=== PATIENT | female | born 1995 | race Caucasian/White ===

== ENCOUNTER 2016-11-16 18:34 | Emergency (ER) | payer MEDICAID, OTHER ==
[~2016-11-16] VITALS: Ht 167.6 cm; Wt 43.0 kg
[~2016-11-16 18:34] MED LIST: ANAP550T PO; PREN0.01 PO; SENN1TAB11 PO
[2016-11-16 18:36] VITALS: BP 117/57; PULSE 87; RESP 13; TEMP 98.8; O2SAT 97
--- NOTE | 2016-11-16 19:31 | PD ---
HPI Chief Complaint: Related Problem Time Seen by Provider: 19:24 Travel History International Travel<30 days: No Contact w/Intl Traveler<30days: No Traveled to known affect area: No History of Present Illness HPI 21 YO F presents to the ED for evaluation of 1 week history of nausea and vomiting. She denies abdominal pain, vaginal bleeding, vaginal discharge. She endorses 2 day history of dysuria despite completing a course of Macrobid form an outside hospital. The patient states that she thinks she had a miscarriage ~ 4 weeks ago. She states that she had 2 days of light vaginal bleeding at that time that resolved spontaneously. She is unsure of the date of her last menstrual period, thinks it may have been in August. PFSH Past Medical History Diminished Hearing: No Ulcer: Yes (PUD) ?: LMP: SEPTEMBER 2016 : 3 Miscarriage: 2 Ovarian Cysts: Yes Social History Alcohol Use: No Tobacco Use: Yes (5 cigarettes per day) Substance Use: No Allergies-Medications (Allergen,Severity, Reaction): Coded Allergies: acetaminophen (Unverified Allergy, Intermediate, HIVES, 10/09/16) oxycodone (Unverified Allergy, Intermediate, HIVES, 10/09/16) diphenhydramine (Unverified Adverse Reaction, Intermediate, HYPERACTIVITY , 10/09/16) Reported Meds & Prescriptions Reported Meds & Active Scripts Active Review of Systems Except as stated in HPI: all other systems reviewed are Neg Physical Exam Narrative GENERAL: Well-nourished, well-developed petite white female in no acute distress. SKIN: Focused skin assessment warm/dry. HEAD: Normocephalic. EYES: No scleral icterus. No injection or drainage. NECK: Supple, trachea midline. No JVD or lymphadenopathy. CARDIOVASCULAR: Regular rate and rhythm without murmurs, gallops, or rubs. RESPIRATORY: Breath sounds equal bilaterally. No accessory muscle use. GASTROINTESTINAL: Abdomen soft, non-tender, nondistended. No suprapubic tenderness. Active bowel sounds. MUSCULOSKELETAL: No cyanosis, or edema. BACK: Nontender without obvious deformity. No CVA tenderness. Data Data Last Documented VS Vital Signs Date Time Temp Pulse Resp B/P (MAP) Pulse Ox O2 Delivery O2 Flow Rate FiO2 11/16/16 18:55 79 18 11/16/16 18:36 98.8 117/57 (77) 97 Orders Orders Urinalysis - C+S If Indicated (11/16/16 19:30) Beta Hcg (Quant/Titer) (11/16/16 19:30) Labs Laboratory Tests Test 11/16/16 19:50 Urine Color YELLOW Urine Turbidity HAZY Urine pH 6.0 Urine Specific [place] 1.011 Urine Protein NEG mg/dL Urine Glucose (UA) NEG mg/dL Urine Ketones NEG mg/dL Urine Occult Blood NEG Urine Nitrite NEG Urine Bilirubin NEG Urine Urobilinogen 2.0 MG/DL Urine Leukocyte Esterase SMALL Urine WBC 5 /hpf Urine Squamous Epithelial Cells 7 /hpf Urine Amorphous Sediment RARE Urine Mucus FEW /lpf Microscopic Urinalysis Comment CULT NOT INDICATED Human Chorionic Gonadotropin, Quant 1656 MIU/ML MDM Medical Decision Making Medical Screen Exam Complete: Yes Emergency Medical Condition: Yes Differential Diagnosis UTI versus intrauterine versus ectopic versus other Narrative Course 21 YO F presents to the ED for evaluation of 1 week history of nausea and vomiting. She denies abdominal pain, vaginal bleeding, vaginal discharge. She endorses 2 day history of dysuria despite completing a course of Macrobid form an outside hospital. The patient states that she thinks she had a miscarriage ~ 4 weeks ago. She states that she had 2 days of light vaginal bleeding at that time that resolved spontaneously. She is unsure of the date of her last menstrual period, thinks it may have been in August. Vitals reviewed. Abdominal exam is completely benign. Urine test positive. HCG 1656. No culture indicated of the UA. This is early stage of . Patient's encouraged to begin taking vitamins. She states that she has an appointment with her oil house attendant on 11/04. We discussed reasons to return to the ED. Patient indicated understanding of the instructions. She is stable and discharged home. Diagnosis Primary Impression: Early stage of Referrals: Real Estate Loan Officer Patient Instructions: First Trimester (ED), General Instructions Additional Instructions: Rest, hydrate. Return to normal, gentle activities as tolerated. Eat several small meals throughout the course the day to lessen nausea and vomiting. Begin taking vitamins. Follow-up with the oil house attendant as planned. Return to the ED for any urgent or emergent medical condition. Disposition: 01 DISCHARGE HOME Condition: Stable Isabel Onofre Nov 16, 2016 19:31
[2016-11-16 20:41] LABS: BLOOD, URINE NEG (NEG); COMMENT (UR) CULT NOT INDICATED; CULTURE IF INDICATED CULT NOT INDICATED; GLUCOSE,URINE NEG (NEG); KETONE, URINE NEG (NEG); MUCUS URINE FEW /lpf (OCC); NITRITE,URINE NEG (NEG); SQUAMOUS EPITHELIAL CELL URINE 7 /hpf (0-5); URINE COLOR YELLOW (YELLW/STRAW)
[2016-11-16 20:45] LABS: BETA HCG QUANT 1656 MIU/ML (0-5)
[2016-11-16] MEDS ORDERED: ONDANSETRON ODT 4 MG TAB PO ONE (21:15)
== END 2016-11-16 21:15 | disposition home or self-care (01) ==
LOC: NEPC 18:34
DX: O21.9 Vomiting of pregnancy, unspecified (principal); Z3A.01 Less than 8 weeks gestation of pregnancy
CPT/HCPCS: 81001; 84702; 99283

== ENCOUNTER 2016-11-27 23:44 | Emergency (ER) | payer MEDICAID ==
[~2016-11-27] VITALS: Ht 162.6 cm; Wt 45.0 kg
[2016-11-27 23:49] VITALS: BP 114/78; PULSE 65; RESP 16; TEMP 98.6; O2SAT 100
--- NOTE | 2016-11-28 01:11 | PD ---
HPI . Abdominal pain and Chief Complaint: Abdominal Pain Time Seen by Provider: 00:54 Travel History International Travel<30 days: No Contact w/Intl Traveler<30days: No Traveled to known affect area: No History of Present Illness HPI Patient presents stating that she is about 5 weeks and that she is having lower abdominal pain. Onset is today. No associated symptoms such as vaginal discharge or bleeding. No urinary tract symptoms. No modifying factors. Pain is rated 7/10. The patient was seen here on 11/16 were was confirmed. She had a quantitative hCG of 1656. She was having no abdominal pain or bleeding so ultrasound was not done. She was instructed to follow-up with OB. PFSH Past Medical History Bipolar Disorder: Yes Depression: Yes Diminished Hearing: No Ulcer: Yes (PUD) Tetanus Vaccination: Unknown ?: LMP: 09/25/2016 : 3 Miscarriage: 2 Ovarian Cysts: Yes Social History Alcohol Use: No Tobacco Use: Yes (5 cigarettes per day) Substance Use: No Allergies-Medications (Allergen,Severity, Reaction): Coded Allergies: acetaminophen (Unverified Allergy, Intermediate, HIVES, 10/09/16) oxycodone (Unverified Allergy, Intermediate, HIVES, 10/09/16) diphenhydramine (Unverified Adverse Reaction, Intermediate, HYPERACTIVITY , 10/09/16) Reported Meds & Prescriptions Reported Meds & Active Scripts Active Review of Systems Except as stated in HPI: all other systems reviewed are Neg General / Constitutional: No: Fever, Chills Gastrointestinal: Positive: Abdominal Pain, No: Nausea, Vomiting, Diarrhea Genitourinary: Positive: Pelvic Pain, No: Urgency, Frequency, Dysuria, Discharge, Vaginal Bleeding Physical Exam Narrative GENERAL: Patient is awake and alert and in no acute distress. SKIN: Warm and dry with no rash or lesions. HEAD: Normocephalic/atraumatic. EYES: Pupils are equal. Extraocular movements are intact. ENT: Extremely poor dentition. NECK: Full range of motion with no apparent pain. CARDIOVASCULAR: Regular rate and rhythm. RESPIRATORY: Nonlabored. ABDOMEN: Soft with suprapubic tenderness. No guarding or rebound. MUSCULOSKELETAL: Atraumatic. NEUROLOGICAL: Nonfocal. PSYCHIATRIC: Appropriate mood and affect. Data Data Last Documented VS Vital Signs Date Time Temp Pulse Resp B/P (MAP) Pulse Ox O2 Delivery O2 Flow Rate FiO2 11/27/16 23:49 98.6 65 16 114/78 (90) 100 Orders Orders Beta Hcg (Quant/Titer) (11/28/16 00:55) Us Pelvis (Ques Pr/Ect)W Trans (11/28/16 ) Urinalysis - C+S If Indicated (11/28/16 00:55) Labs Laboratory Tests Test 11/28/16 01:00 Urine Color LIGHT-YELLOW Urine Turbidity HAZY Urine pH 7.0 Urine Specific [place] 1.004 Urine Protein NEG mg/dL Urine Glucose (UA) NEG mg/dL Urine Ketones NEG mg/dL Urine Occult Blood NEG Urine Nitrite NEG Urine Bilirubin NEG Urine Urobilinogen LESS THAN 2.0 MG/DL Urine Leukocyte Esterase MOD Urine RBC 4 /hpf Urine WBC 5 /hpf Urine Squamous Epithelial Cells 2 /hpf Urine Amorphous Sediment RARE Urine Bacteria RARE /hpf Microscopic Urinalysis Comment CULT NOT INDICATED Human Chorionic Gonadotropin, Quant 08354 MIU/ML MDM Medical Decision Making Medical Screen Exam Complete: Yes Emergency Medical Condition: Yes Medical Record Reviewed: Yes (beta hCG on 11/16 =l 1656) Differential Diagnosis Differential diagnosis of pelvic pain includes but is not limited to UTI, PID, ectopic , spontaneous AB, constipation, viral illness Narrative Course This patient presents stating that she is and is having pelvic pain. Quantitative hCG and ultrasound are pending. UA has also been ordered. UA>> mod LE, 4 RBCs, 5 WBCs, rare bact. This probably needs to be treated in a patient. Quantitative hCG is 37,753 US: 1. Single, viable intrauterine at approximately 6 weeks 1 day gestational age without evidence of acute complication. 2. Corpus luteal left ovarian cysts. No ectopic demonstrated. Diagnosis Primary Impression: Pelvic pain affecting Qualified Codes: O26.891 - Other specified related conditions, first trimester; R10.2 - Pelvic and perineal pain Additional Instructions: Tylenol as needed for discomfort. Follow-up with OB. Disposition: DISCHARGE HOME Condition: Stable Jaci Ruiz MD Nov 28, 2016 01:11
[2016-11-28 01:25] LABS: BACTERIA, URINE RARE /hpf; BLOOD, URINE NEG (NEG); COMMENT (UR) CULT NOT INDICATED; CULTURE IF INDICATED CULT NOT INDICATED; GLUCOSE,URINE NEG (NEG); KETONE, URINE NEG (NEG); NITRITE,URINE NEG (NEG); SQUAMOUS EPITHELIAL CELL URINE 2 /hpf (0-5); URINE COLOR LIGHT-YELLOW (YELLW/STRAW)
[2016-11-28 01:49] LABS: BETA HCG QUANT 37753 MIU/ML (0-5)
--- NOTE | 2016-11-28 01:57 | RADRPT ---
EXAM DATE/TIME: 11/28/2016 00:58 [facility] COMPARISON: No previous studies available for comparison. INDICATIONS : Pelvic pain. LAB(S): Beta-hC 11/16/2016 MEDICAL HISTORY : . Ovarian cysts. SURGICAL HISTORY : Right knee surgery. ENCOUNTER: Initial ACUITY: 1 day PAIN SCORE: 3/10 LOCATION: Bilateral pelvis MEASUREMENTS: UTERUS: 9.2 x 4.6 x 5.4 cm ENDOMETRIAL STRIPE: 11 mm RIGHT OVARY: 2.7 x 1.7 x 2.4 cm LEFT OVARY: 4.7 x 1.6 x 3.2 cm FREE FLUID: No CROWN RUMP LENGTH: 0.4 cm = 6 WKS 1 DAYS FHR: 118 BPM FINDINGS: Gestational sac with a 3.8 mm pole seen within the uterine cavity. Gestational age is approxima tely 6 weeks 1 day. heart tones are demonstrated. No subchorionic hemorrhage seen. Right ovary within normal limits. Mildly complex cyst measuring 14 x 9 x 12 mm and 20 x 10 x 22 mm ar e seen of the left ovary. There is no free fluid. CONCLUSION: 1. Single, viable intrauterine at approximately 6 weeks 1 day gestational age without evide nce of acute complication. 2. Corpus luteal left ovarian cysts. No ectopic demonstrated. Domingo Santo MD on November 28, 2016 at 1:52 Board Certified Radiologist. This report was verified electronically.
== END 2016-11-28 02:29 | disposition home or self-care (01) ==
LOC: NEPC 23:44
DX: O26.891 Other specified pregnancy related conditions, first trimester (principal); R10.2 Pelvic and perineal pain; O99.331 Smoking (tobacco) complicating pregnancy, first trimester; F17.210 Nicotine dependence, cigarettes, uncomplicated; Z3A.01 Less than 8 weeks gestation of pregnancy
CPT/HCPCS: 76700; 76817; 81001; 84702

== ENCOUNTER 2017-01-02 15:04 | Emergency (ER) | payer MEDICAID ==
[~2017-01-02] VITALS: Ht 154.9 cm; Wt 43.5 kg
[2017-01-02 15:05] VITALS: BP 94/54; PULSE 79; RESP 14; TEMP 98.7; O2SAT 99
[2017-01-02 15:41] LABS: AUTOMATED NEUTROPHIL # 8.3 TH/MM3 (1.8-7.7); BASOPHIL % 0.2 % (0.0-2.0); EOSINOPHIL # 0.1 TH/MM3 (0-0.4); EOSINOPHIL % 0.9 % (0.0-4.0); HEMATOCRIT 40.7 % (35.0-46.0); HEMO FLAGS DIFF FINAL; LYMPH % 17.2 % (9.0-44.0); LYMPHOCYTE # 1.9 TH/MM3 (1.0-4.8); MEAN CORPUSCULAR HEMOGLOBIN 28.9 PG (27.0-34.0); MEAN CORPUSCULAR HGB CONC 32.9 % (32.0-36.0); MONO % 6.8 % (0.0-8.0); NEUT % 74.9 % (16.0-70.0); PLATELET COUNT 343 TH/MM3 (150-450); RED BLOOD COUNT 4.63 MIL/MM3 (4.00-5.30); RED CELL DISTRIBUTION WIDTH 12.7 % (11.6-17.2); WHITE BLOOD COUNT 11.1 TH/MM3 (4.0-11.0)
[2017-01-02 16:00] LABS: ALT (GPT) 19 U/L (10-53); ANION GAP 8 MEQ/L (5-15); AST (GOT) 16 U/L (15-37); BICARBONATE 25.2 MEQ/L (21.0-32.0); CHLORIDE 103 MEQ/L (98-107); GLOMERULAR FILTRATION RATE 131 ML/MIN (>89); POTASSIUM 3.8 MEQ/L (3.5-5.1); SODIUM (NA) 136 MEQ/L (136-145)
[2017-01-02 16:03] LABS: ALKALINE PHOSPHATASE 69 U/L (45-117); BLOOD UREA NITROGEN 5 MG/DL (7-18); TOTAL BILIRUBIN ADULT 0.3 MG/DL (0.2-1.0)
[2017-01-02 16:40] LABS: BACTERIA, URINE OCC /hpf; BLOOD, URINE NEG (NEG); COMMENT (UR) CULTURE INDICATED; CULTURE IF INDICATED CULTURE INDICATED; GLUCOSE,URINE NEG (NEG); KETONE, URINE NEG (NEG); MUCUS URINE FEW /lpf (OCC); NITRITE,URINE NEG (NEG); SQUAMOUS EPITHELIAL CELL URINE 6 /hpf (0-5); URINE COLOR YELLOW (YELLW/STRAW)
--- NOTE | 2017-01-02 17:51 | PD ---
Physical Exam Date Seen by Provider: Jan 02, 2017 Time Seen by Provider: 19:00 Narrative Pt states she is 11 weeks . She reports feeling dizzy, nauseated. Pt states she felt like she was going to pass out. No dysuria, no vaginal bleeding , fevers. abdominal pain. She has not had any care yet. Data Data Last Documented VS Vital Signs Date Time Temp Pulse Resp B/P (MAP) Pulse Ox O2 Delivery O2 Flow Rate FiO2 01/02/17 15:05 98.7 79 14 94/54 (67) 99 Room Air Orders Orders Complete Blood Count With Diff (01/02/17 15:13) Comprehensive Metabolic Panel (01/02/17 15:13) Magnesium (Mg) (01/02/17 15:13) Urinalysis - C+S If Indicated (01/02/17 15:13) Urine Culture (01/02/17 15:45) Labs Laboratory Tests Test 01/02/17 15:20 01/02/17 15:45 White Blood Count 11.1 TH/MM3 Red Blood Count 4.63 MIL/MM3 Hemoglobin 13.4 GM/DL Hematocrit 40.7 % Mean Corpuscular Volume 88.0 FL Mean Corpuscular Hemoglobin 28.9 PG Mean Corpuscular Hemoglobin Concent 32.9 % Red Cell Distribution Width 12.7 % Platelet Count 343 TH/MM3 Mean Platelet Volume 8.1 FL Neutrophils (%) (Auto) 74.9 % Lymphocytes (%) (Auto) 17.2 % Monocytes (%) (Auto) 6.8 % Eosinophils (%) (Auto) 0.9 % Basophils (%) (Auto) 0.2 % Neutrophils # (Auto) 8.3 TH/MM3 Lymphocytes # (Auto) 1.9 TH/MM3 Monocytes # (Auto) 0.8 TH/MM3 Eosinophils # (Auto) 0.1 TH/MM3 Basophils # (Auto) 0.0 TH/MM3 CBC Comment DIFF FINAL Differential Comment Blood Urea Nitrogen 5 MG/DL Creatinine 0.57 MG/DL Random Glucose 77 MG/DL Total Protein 8.7 GM/DL Albumin 4.0 GM/DL Calcium Level 9.5 MG/DL Magnesium Level 2.0 MG/DL Alkaline Phosphatase 69 U/L Aspartate Amino Transf (AST/SGOT) 16 U/L Alanine Aminotransferase (ALT/SGPT) 19 U/L Total Bilirubin 0.3 MG/DL Sodium Level 136 MEQ/L Potassium Level 3.8 MEQ/L Chloride Level 103 MEQ/L Carbon Dioxide Level 25.2 MEQ/L Anion Gap 8 MEQ/L Estimat Glomerular Filtration Rate 131 ML/MIN Urine Color YELLOW Urine Turbidity HAZY Urine pH 6.0 Urine Specific [place] 1.019 Urine Protein TRACE mg/dL Urine Glucose (UA) NEG mg/dL Urine Ketones NEG mg/dL Urine Occult Blood NEG Urine Nitrite NEG Urine Bilirubin NEG Urine Urobilinogen LESS THAN 2.0 MG/DL Urine Leukocyte Esterase LARGE Urine WBC 29 /hpf Urine Squamous Epithelial Cells 6 /hpf Urine Bacteria OCC /hpf Urine Mucus FEW /lpf Microscopic Urinalysis Comment CULTURE INDICATED MDM Medical Record Reviewed: Yes Supervised Visit with NICKY: No Narrative Course Pt is a female presenting due to near syncopal episodes, nausea and vomiting. Pt is hypotensive but this is her normal. Protocols ordered, pt is awaiting bed placement. Diagnosis Primary Impression: Left against medical advice Disposition: 07 AGAINST MEDICAL ADVICE Avril Toscano Jan 02, 2017 17:51
== END 2017-01-02 17:14 | disposition left against medical advice (07) ==
LOC: NED 15:04
DX: O26.891 Other specified pregnancy related conditions, first trimester (principal); R55 Syncope and collapse; R11.2 Nausea with vomiting, unspecified; R82.99 Other abnormal findings in urine; B96.20 Unspecified Escherichia coli [E. coli] as the cause of diseases classified elsewhere; Z53.20 Procedure and treatment not carried out because of patient's decision for unspecified reasons; Z3A.11 11 weeks gestation of pregnancy
CPT/HCPCS: 80053; 81001; 83735; 85025; 87077; 87086; 87186; 99283

== ENCOUNTER 2017-01-22 19:16 | Emergency (ER) | payer MEDICAID ==
[2017-01-22 19:18] VITALS: BP 114/57; PULSE 88; RESP 16; TEMP 98.4; O2SAT 99
[2017-01-22] MEDS ORDERED: BUTA1CAP PO (19:47)
[2017-01-22] MEDS ORDERED: NITR100C4 PO (19:47)
[2017-01-22] MEDS ORDERED: BUPR100CR PO (19:47)
--- NOTE | 2017-01-22 19:57 | PD ---
HPI Chief Complaint: Related Problem Time Seen by Provider: 19:46 Travel History International Travel<30 days: No Contact w/Intl Traveler<30days: No Traveled to known affect area: No History of Present Illness HPI 21-year-old female was proximal to 14 weeks here for evaluation after her 65 pound dog jumped on her abdomen twice today while lying in bed. She reports that this occurred at around 3:00 PM. She is denying vaginal bleeding or discharge. No abdominal pain. She is concerned because she has not felt any movements since 3:00 PM PFSH Past Medical History Bipolar Disorder: Yes Depression: Yes Diminished Hearing: No Ulcer: Yes (PUD) Tetanus Vaccination: > 5 Years Influenza Vaccination: No ?: : 3 Miscarriage: 2 Ovarian Cysts: Yes Social History Alcohol Use: No Tobacco Use: Yes (5 cigarettes per day) Substance Use: No Allergies-Medications (Allergen,Severity, Reaction): Coded Allergies: acetaminophen (Verified Allergy, Intermediate, HIVES, 01/22/17) oxycodone (Verified Allergy, Intermediate, HIVES, 01/22/17) diphenhydramine (Verified Adverse Reaction, Intermediate, HYPERACTIVITY, 01/22/17) Reported Meds & Prescriptions Reported Meds & Active Scripts Active Reported Nitrofurantoin Monohydrate Macrocrystals (Nitrofurantoin Monoh/Nitrofur Macro) 100 Mg Cap 100 Mg PO BID Fioricet (Akooflvapq-Emxnxidsputdx-Gytlemic) 50-300-40 Mg Cap 1 Cap PO Q4H PRN Wellbutrin SR 12 HR (Bupropion HCl) 100 Mg Tab 100 Mg PO Q12HR Review of Systems Except as stated in HPI: all other systems reviewed are Neg Physical Exam Narrative GENERAL: Well-developed, well-nourished, comfortable, no distress. SKIN: Focused skin assessment warm/dry. No lacerations, abrasions, or ecchymosis. CARDIOVASCULAR: Regular rate and rhythm. RESPIRATORY: No accessory muscle use. Clear to auscultation. Breath sounds equal bilaterally. GASTROINTESTINAL: Abdomen soft, non-tender, nondistended. MUSCULOSKELETAL: No obvious deformities. No clubbing. No cyanosis. No edema. NEUROLOGICAL: Awake and alert. No obvious cranial nerve deficits. Motor grossly within normal limits. Normal speech. PSYCHIATRIC: Appropriate mood and affect; insight and judgment normal. Data Data Last Documented VS Vital Signs Date Time Temp Pulse Resp B/P (MAP) Pulse Ox O2 Delivery O2 Flow Rate FiO2 01/22/17 19:18 98.4 88 16 114/57 (76) 99 Room Air MDM Medical Decision Making Medical Screen Exam Complete: Yes Emergency Medical Condition: Yes Differential Diagnosis Abdominal trauma in , demise Narrative Course Bedside transabdominal ultrasound was performed and shows an IUP with heart rate of 154 bpm. The patient's abdomen is nontender. The patient was reassured and will be discharged home and advised to follow-up with her crew director this week. She was informed on when to return to the emergency department. She verbalizes understanding and agreement with plan. Procedures Procedure Narrative Bedside transabdominal ultrasound: Using the curvilinear ultrasound probe, a bedside transabdominal exam was performed and shows an IUP with a heart rate of 154 bpm. Diagnosis Primary Impression: Qualified Codes: Z34.90 - Encounter for supervision of normal , unspecified, unspecified trimester Referrals: Core Setter 3 days Additional Instructions: Follow-up with your CHINESE TEACHER physician this week. Return to the emergency department for worsening symptoms or any other concerns as discussed. Disposition: 01 DISCHARGE HOME Condition: Stable César Dobbins MD Jan 22, 2017 19:57
== END 2017-01-22 20:10 | disposition home or self-care (01) ==
LOC: NEPD 19:16
DX: O26.892 Other specified pregnancy related conditions, second trimester (principal); Z3A.14 14 weeks gestation of pregnancy
CPT/HCPCS: 99284

== ENCOUNTER 2017-02-22 21:41 | Emergency (ER) | payer MEDICAID ==
[~2017-02-22 21:41] MED LIST changes: -ANAP550T PO; +BUPR100CR PO; +BUTA1CAP PO; +NITR100C4 PO; -PREN0.01 PO; -SENN1TAB11 PO
[2017-02-22 21:44] VITALS: BP 110/52; PULSE 92; RESP 16; TEMP 98.3; O2SAT 100
--- NOTE | 2017-02-22 22:04 | PD ---
HPI Chief Complaint: Musculoskeletal Complaint Time Seen by Provider: 21:50 Travel History International Travel<30 days: No Contact w/Intl Traveler<30days: No Traveled to known affect area: No History of Present Illness HPI 21-year-old [id number] white female presents from her department with complaints of right hand pain after closing her hand in a car door. She states that she's in her first trimester . No complications. She denies any numbness or tingling. Pain is mild to moderate. Worse with movement. Some improvement with elevation. PFSH Past Medical History Bipolar Disorder: Yes Depression: Yes Diminished Hearing: No Genitourinary: Yes (CHRONIC UTI) Ulcer: Yes (PUD) Tetanus Vaccination: < 5 Years Influenza Vaccination: No ?: LMP: September : 4 Para: 1 Miscarriage: 2 Ovarian Cysts: Yes Social History Alcohol Use: No Tobacco Use: Yes (1 PPD) Substance Use: No Allergies-Medications (Allergen,Severity, Reaction): Coded Allergies: acetaminophen (Verified Allergy, Intermediate, HIVES, 02/22/17) oxycodone (Verified Allergy, Intermediate, HIVES, 02/22/17) diphenhydramine (Verified Adverse Reaction, Intermediate, HYPERACTIVITY, 02/22/17) Reported Meds & Prescriptions Reported Meds & Active Scripts Active Reported Nitrofurantoin Monohydrate Macrocrystals (Nitrofurantoin Monoh/Nitrofur Macro) 100 Mg Cap 100 Mg PO BID Fioricet (Lohprgnbqx-Cxfippdmqrmwr-Zudlqfcm) 50-300-40 Mg Cap 1 Cap PO Q4H PRN Wellbutrin SR 12 HR (Bupropion HCl) 100 Mg Tab 100 Mg PO Q12HR Review of Systems General / Constitutional: No: Fever Eyes: No: Visual changes HENT: No: Headaches Cardiovascular: No: Chest Pain or Discomfort Respiratory: No: Shortness of Breath Gastrointestinal: No: Abdominal Pain Genitourinary: No: Dysuria Musculoskeletal: No: Pain Skin: No Rash Neurologic: No: Weakness Psychiatric: No: Depression Endocrine: No: Polydipsia Hematologic/Lymphatic: No: Easy Bruising Physical Exam Narrative GENERAL: This is a well-nourished, well-developed patient, in no apparent distress. SKIN: No rashes, ecchymoses or lesions. Warm and dry. HEAD: Atraumatic. Normocephalic. EYES: PERRL, EOMI, no discharge or injection. No scleral icterus. EARS: Clear NOSE: Nasal turbinates appear normal. THROAT: Mucosa pink and moist. Airway patent. NECK: Trachea midline. supple, moves head freely. LUNGS: Clear to auscultation. CV: Regular in rhythm. ABDOMEN: Soft nontender. EXT: No clubbing cyanosis or edema. Patient has soft tissue tenderness to the left wrist and hand. No bony deformity. She moves her fingers freely. Intact median/ulnar/radial nerves. Her ring is removed. Data Data Last Documented VS Vital Signs Date Time Temp Pulse Resp B/P (MAP) Pulse Ox O2 Delivery O2 Flow Rate FiO2 02/22/17 21:44 98.3 92 16 110/52 (71) 100 Room Air Orders Orders Ed Discharge Order (02/22/17 22:01) MDM Medical Decision Making Medical Screen Exam Complete: Yes Emergency Medical Condition: Yes Medical Record Reviewed: Yes Differential Diagnosis MDM: High Differential diagnoses: Fracture, sprain, strain, dislocation, contusion, neurovascular injury Narrative Course Patient's exam is reassuring. There is no evidence of any bony injury. I do not believe an x-ray is indicated especially in her first trimester . Patient's encouraged to elevate, ice and Tylenol. Diagnosis Primary Impression: Contusion of right hand Qualified Codes: S60.221A - Contusion of right hand, initial encounter Patient Instructions: General Instructions Additional Instructions: Rest. Elevation. Ice. Tylenol for pain. Follow-up with a medical doctor in one week. Med/Other Pt SpecificInfo: No Meds Exist/No RX given Disposition: DISCHARGE HOME Condition: Stable Michel Muñoz Feb 22, 2017 22:04
== END 2017-02-22 22:15 | disposition home or self-care (01) ==
LOC: NEPD 21:41
DX: S60.221A Contusion of right hand, initial encounter (principal); F31.9 Bipolar disorder, unspecified; K27.9 Peptic ulcer, site unspecified, unspecified as acute or chronic, without hemorrhage or perforation; O99.331 Smoking (tobacco) complicating pregnancy, first trimester; W23.0XXA Caught, crushed, jammed, or pinched between moving objects, initial encounter; Y92.810 Car as the place of occurrence of the external cause; Z34.91 Encounter for supervision of normal pregnancy, unspecified, first trimester; Z79.899 Other long term (current) drug therapy; Z88.5 Allergy status to narcotic agent
CPT/HCPCS: 99282

== ENCOUNTER 2017-03-01 21:56 | Emergency (ER) | payer MEDICAID ==
--- NOTE | 2017-03-02 00:08 | PD ---
HPI Chief Complaint Spotting Date Seen: Mar 01, 2017 Time Seen: 22:55 Travel History International Travel<30 Days: No Contact w/Intl Traveler<30Days: No Known Affected Area: No History of Present Illness HPI 21-year-old 4 para 1 AB 2 at 19 weeks gestation who reports a small amount of vaginal bleeding. She has a photograph of a sanitary pad with a slight pink streak. She denies any leakage of fluid or discharge. No vaginal irritation. No recent intercourse. History Past Medical History Narrative Medical Hyperthyroidism recently diagnosed Obstetric History Obstetric History One prior term vaginal delivery 2 SABs Current enrolled in care in [place] Past Surgical History Narrative Surgical Knee surgery Family History Family History: Negative Social History Alcohol Use: No Tobacco Use: No Substance Abuse: No Allergies-Medications (Allergen,Severity, Reaction): Coded Allergies: acetaminophen (Verified Allergy, Intermediate, HIVES, 02/22/17) PT DENIES oxycodone (Verified Allergy, Intermediate, HIVES, 02/22/17) diphenhydramine (Verified Adverse Reaction, Intermediate, HYPERACTIVITY, 02/22/17) Home Meds Reported Medications Nitrofurantoin Monohydrate Macrocrystals (Nitrofurantoin Monohydrate Macrocrystals) 100 Mg Cap, 100 MG PO BID for Infection, CAP 0 Refills 01/22/17 Gyhkzvpoov-Hmsmxzzkrxfji-Hwlsnwac (Fioricet) 50-300-40 Mg Cap, 1 CAP PO Q4H Y for HEADACHE, CAP 0 Refills 01/22/17 Bupropion HCl ER 12 HR (Wellbutrin SR 12 HR) 100 Mg Tab, 100 MG PO Q12HR for Control Depression, TAB 0 Refills 01/22/17 Review of Systems Except as stated in HPI: all other systems reviewed are Neg Physical Exam Narrative GENERAL: Well-nourished, well-developed patient. SKIN: Warm and dry. HEAD: Normocephalic and atraumatic. EYES: No scleral icterus. No injection or drainage. ENT: No nasal drainage noted. Mucous membranes pink. Airway patent. NECK: Supple, trachea midline. No JVD. CARDIOVASCULAR: Regular rate and rhythm without murmurs, gallops, or rubs. RESPIRATORY: Breath sounds equal bilaterally. No accessory muscle use. ABDOMEN/GI: Abdomen soft, non-tender, bowel sounds present, no rebound, no guarding Gravid to [-] weeks size Fundal Height: [-] GENITOURINARY: External Genitalia: intact and normal in appearance BUS glands: [-Negative, vagina has a physiologic discharge without evidence of recent bleeding] Cervix: [-Clean] Dilatation: [-Closed] Effacement: [Long-] Station: [-] Presentation: [-] Membranes: [intact or ruptured] Uterine Contractions: [-] FHT's: Category: [-] Baseline: [140-] Reactive: [-] Variability: [-] Decels: [-] EXTREMITIES: No cyanosis or edema. BACK: Nontender without obvious deformity. No CVA tenderness. NEUROLOGICAL: Awake and alert. Motor and sensory grossly within normal limits. Five out of 5 muscle strength in all muscle groups. Normal speech. Data Data Vital Signs Reviewed: Yes MDM Medical Record Reviewed: Yes Narrative Course / MDM Assessment: 19 week with reported vaginal bleeding not found on examination Plan: Precautions reviewed. Follow-up as needed. Diagnosis Diagnosis: Primary Impression: 19 weeks gestation of Ruled Out: Vaginal bleeding in patient at less than 20 weeks ges... Disposition: 01 DISCHARGE HOME Condition: Good Patient Instructions: General Instructions, Labor (ED), Movement (ED), Abdominal Pain in (ED), Urinary Tract Infection in (ED ) Departure Forms: Tests/Procedures Mac Delaney MD Mar 02, 2017 00:08
== END 2017-03-02 00:47 | disposition home or self-care (01) ==
LOC: HOBED 21:56
DX: O20.9 Hemorrhage in early pregnancy, unspecified (principal); Z3A.19 19 weeks gestation of pregnancy
CPT/HCPCS: 99284

== ENCOUNTER 2017-03-11 12:13 | Emergency (ER) | payer MEDICAID ==
[2017-03-11 13:24] LABS: BILIRUBIN, URINE NEG (NEG); BLOOD, URINE MOD (NEG); GLUCOSE,URINE NEG (NEG); KETONE, URINE NEG (NEG); MUCUS URINE FEW /lpf (OCC); NITRITE,URINE NEG (NEG); SQUAMOUS EPITHELIAL CELL URINE 37 /hpf (0-5); TRANSITIONAL EPI CELLS, URINE <1 /hpf; URINE COLOR YELLOW (YELLW/STRAW); URINE LEUKOCYTE ESTERASE LARGE (NEG)
[2017-03-11] MEDS ORDERED: METR1TAB76 PO (13:46)
--- NOTE | 2017-03-11 13:50 | PD ---
HPI Chief Complaint Vaginal bleeding. Date Seen: Mar 11, 2017 Travel History International Travel<30 Days: No Contact w/Intl Traveler<30Days: No Known Affected Area: No History of Present Illness HPI Patient is a 21 year old at 20-6/7 weeks gestation with MITCHELL 07/23/2017 who presents today for vaginal bleeding. She noted a small amount of vaginal bleeding this morning about the size of a 50 cent piece. She denies any vaginal discharge, pelvic pain or contractions. Positive movement. She is currently being monitored by MFM for hyperthyroidism on methimazole. care is in [place]. History Past Medical History Narrative Medical Hyperthyroidism on methimazole Obstetric History Obstetric History at 39 weeks gestation 11/17/11 Past Surgical History Surgical History: No Previous Surgery Family History Family History: Negative Social History Alcohol Use: No Tobacco Use: No Substance Abuse: No Allergies-Medications (Allergen,Severity, Reaction): Coded Allergies: acetaminophen (Verified Allergy, Intermediate, HIVES, 02/22/17) PT DENIES oxycodone (Verified Allergy, Intermediate, HIVES, 02/22/17) diphenhydramine (Verified Adverse Reaction, Intermediate, HYPERACTIVITY, 02/22/17) Home Meds Active Scripts Metronidazole (Metronidazole) 500 Mg Tab, 500 MG PO BID for Infection, #14 TAB 0 Refills Prov:Sandra Harris MD, R3 03/11/17 Reported Medications Nitrofurantoin Monohydrate Macrocrystals (Nitrofurantoin Monohydrate Macrocrystals) 100 Mg Cap, 100 MG PO BID for Infection, CAP 0 Refills 01/22/17 Jbccmbxeyj-Mpaukwnvwmuno-Zbyujuac (Fioricet) 50-300-40 Mg Cap, 1 CAP PO Q4H Y for HEADACHE, CAP 0 Refills 01/22/17 Bupropion HCl ER 12 HR (Wellbutrin SR 12 HR) 100 Mg Tab, 100 MG PO Q12HR for Control Depression, TAB 0 Refills 01/22/17 Review of Systems Except as stated in HPI: all other systems reviewed are Neg General / Constitutional: No: Fever, Chills Eyes: No: Blurred Vision, Visual changes HENT: No: Headaches Cardiovascular: No: Chest Pain or Discomfort Respiratory: No: Cough, Short of Breath Gastrointestinal: No: Nausea, Vomiting Genitourinary: Vaginal Bleeding, No: Dysuria, Hematuria, Pelvic Pain, Discharge Musculoskeletal: No: Edema Physical Exam Narrative GENERAL: Well-nourished, well-developed patient. SKIN: Warm and dry. HEAD: Normocephalic and atraumatic. EYES: No scleral icterus. No injection or drainage. ENT: No nasal drainage noted. Mucous membranes pink. Airway patent. NECK: Supple, trachea midline. No JVD. CARDIOVASCULAR: Regular rate and rhythm without murmurs, gallops, or rubs. RESPIRATORY: Breath sounds equal bilaterally. No accessory muscle use. ABDOMEN/GI: Abdomen soft, non-tender, bowel sounds present, no rebound, no guarding Gravid to 20 weeks size GENITOURINARY: External Genitalia: intact and normal in appearance Speculum Exam: Purulent cervicitis with copious greenish yellow discharge. Cervix is tender, inflamed, erythematous and friable. No active bleeding sites. No blood pooled in the vagina. Friable cervix is obvious source of bleeding. Uterine Contractions: none FHT's: 150 EXTREMITIES: No cyanosis or edema. BACK: Nontender without obvious deformity. NEUROLOGICAL: Awake and alert. Motor and sensory grossly within normal limits. Normal speech. Data Data Vital Signs Reviewed: Yes Orders Orders Ob Poc Ultrasound (03/11/17 ) Urinalysis - C+S If Indicated (03/11/17 12:54) Vital Signs (Adult) .ON ADMISSION (03/11/17 13:22) ^ Labor Status (03/11/17 13:22) Heart (03/11/17 13:22) ^ Non Stress Test (03/11/17 13:22) Wet Prep Profile (03/11/17 13:22) Urine Culture (03/11/17 12:40) Labs Laboratory Tests Test 03/11/17 12:40 Urine Color YELLOW Urine Turbidity HAZY Urine pH 7.0 Urine Specific [place] 1.017 Urine Protein 30 Urine Glucose (UA) NEG Urine Ketones NEG Urine Occult Blood MOD Urine Nitrite NEG Urine Bilirubin NEG Urine Urobilinogen LESS THAN 2.0 Urine Leukocyte Esterase LARGE Urine RBC 2 Urine WBC 30 Urine Squamous Epithelial Cells 37 Urine Transitional Epithelial Cells <1 Urine Mucus FEW Microscopic Urinalysis Comment CULTURE INDICATED Date/Time Source Procedure Growth Status 03/11/17 12:40 Urine Clean Catch Urine Culture Pending Received BEDSIDE US: Single intrauterine in vertex presentation at 20 weeks and 6 days size. EFW 348g. Normal amniotic fluid. BPD 5.21cm, HC 17.29cm, AC 14.73cm, FL 3.41cm. Anterior placenta, Grade 0, low lying. No placenta previa. MDM Medical Record Reviewed: Yes Narrative Course / MDM 21 year old at 20-6/7 weeks gestation. 1. IUP- FHT reassuring. Bedside US size consistent with dates. 2. Vaginal bleeding- likely secondary to purulent cervicitis. Wet prep positive for BV- will treat with Flagyl 500mg PO BID x 7 days. GC/chlamydia pending. Will treat with Rocephin 250mg IM once and Azithromycin 1g PO once. 3. Recurrent UTI- currently on Macrobid. Culture indicated on UA today, will follow and treat as indicated. [email or web address] Dr. Cunningham Diagnosis Diagnosis: Primary Impression: Bacterial vaginosis Additional Impression: Purulent cervicitis Disposition: 01 DISCHARGE HOME Condition: Stable Scripts Metronidazole (Metronidazole) 500 Mg Tab 500 MG PO BID for Infection, #14 TAB 0 Refills Prov: Sandra Harris MD, R3 03/11/17 Sandra Harris MD, R3 Mar 11, 2017 13:50
[2017-03-11] MEDS ORDERED: cefTRIAXone 250 MG VIAL IM ONE (14:00)
[2017-03-11] MEDS ORDERED: AZITHROMYCIN PWD FOR SUSP 1 GM PACKET PO ONE (14:00)
== END 2017-03-11 15:27 | disposition home or self-care (01) ==
LOC: HOBED 12:13
DX: N76.0 Acute vaginitis (principal); O23.512 Infections of cervix in pregnancy, second trimester; B96.89 Other specified bacterial agents as the cause of diseases classified elsewhere; Z3A.20 20 weeks gestation of pregnancy; E05.90 Thyrotoxicosis, unspecified without thyrotoxic crisis or storm; O99.282 Endocrine, nutritional and metabolic diseases complicating pregnancy, second trimester
CPT/HCPCS: 76815; 81001; 87086; 87210; 87491; 87591; 96372; 99284; J0696

== ENCOUNTER 2017-05-13 21:03 | Emergency (ER) | payer MEDICAID ==
[~2017-05-13 21:03] MED LIST changes: +METR1TAB76 PO
--- NOTE | 2017-05-13 21:41 | PD ---
HPI Chief Complaint Contractions Date Seen: May 13, 2017 Time Seen: 21:35 Travel History International Travel<30 Days: No Contact w/Intl Traveler<30Days: No Known Affected Area: No History of Present Illness HPI 21-year-old who is at 29 weeks 6 days complains of contractions that began approximately 3 hours ago. She states that this does not happen prior to today and has had an uncomplicated course except for 2 episodes of second trimester vaginal bleeding. Patient is being followed by her chain puller who is in [place] but she is planning on delivering here. She does not have any records with her at this time. Patient states that she does have hyperthyroidism and was initially placed on methimazole but was taken off a few weeks ago and has had subsequent normal thyroid function tests. Patient did try and rest and states that she has had adequate hydration today. Weeks Gestation: 29 Para: 1 : 5 Miscarriage: 3 History Past Medical History Narrative Medical Hyperthyroidism Obstetric History Obstetric History Spontaneous vaginal delivery, 5 lbs. 11 oz., 39 weeks gestation Past Surgical History Narrative Surgical Right knee surgery Family History Family History: Negative Social History Alcohol Use: No Tobacco Use: Yes Substance Abuse: No Allergies-Medications (Allergen,Severity, Reaction): Coded Allergies: acetaminophen (Verified Allergy, Intermediate, HIVES, 02/22/17) PT DENIES oxycodone (Verified Allergy, Intermediate, HIVES, 02/22/17) diphenhydramine (Verified Adverse Reaction, Intermediate, HYPERACTIVITY, 02/22/17) Home Meds Active Scripts Metronidazole (Metronidazole) 500 Mg Tab, 500 MG PO BID for Infection, #14 TAB 0 Refills Prov:Sandra Harris MD, R3 03/11/17 Reported Medications Nitrofurantoin Monohydrate Macrocrystals (Nitrofurantoin Monohydrate Macrocrystals) 100 Mg Cap, 100 MG PO BID for Infection, CAP 0 Refills 01/22/17 Gceglwrybx-Quiipngvaekxx-Nymbvxax (Fioricet) 50-300-40 Mg Cap, 1 CAP PO Q4H Y for HEADACHE, CAP 0 Refills 01/22/17 Bupropion HCl ER 12 HR (Wellbutrin SR 12 HR) 100 Mg Tab, 100 MG PO Q12HR for Control Depression, TAB 0 Refills 01/22/17 Review of Systems Except as stated in HPI: all other systems reviewed are Neg Physical Exam Narrative GENERAL: Well-nourished, well-developed patient. SKIN: Warm and dry. HEAD: Normocephalic and atraumatic. EYES: No scleral icterus. No injection or drainage. ENT: No nasal drainage noted. Mucous membranes pink. Airway patent. Extremely poor dentition NECK: Supple, trachea midline. No JVD. CARDIOVASCULAR: Regular rate and rhythm without murmurs, gallops, or rubs. RESPIRATORY: Breath sounds equal bilaterally. No accessory muscle use. ABDOMEN/GI: Abdomen soft, non-tender, bowel sounds present, no rebound, no guarding Gravid to [-27] weeks size Fundal Height: [-] GENITOURINARY: External Genitalia: intact and normal in appearance BUS glands: [-] Normal Cervix: [-] Midposition Dilatation: [-] Closed Effacement: [-] 50% Station: [-] -3 Presentation: [-] Vertex Membranes: [intact or ruptured] intact Uterine Contractions: [-] Irregular FHT's: Category: [-] 1 Baseline: [-] 140 Reactive: [-] Moderate Variability: [-] Moderate Decels: [-] Absent EXTREMITIES: No cyanosis or edema. BACK: Nontender without obvious deformity. No CVA tenderness. NEUROLOGICAL: Awake and alert. Motor and sensory grossly within normal limits. Five out of 5 muscle strength in all muscle groups. Normal speech. Data Data Vital Signs Reviewed: Yes Orders Orders Vital Signs (Adult) .ON ADMISSION (05/13/17 21:33) ^ Labor Status (05/13/17 21:33) Urinalysis - C+S If Indicated (05/13/17 21:33) ^ Non Stress Test (05/13/17 21:33) Diet Liquid (05/14/17 Breakfast) Fibronectin (05/13/17 21:33) Drug Screen, Random Urine (05/13/17 21:33) Labs Laboratory Tests Test 05/13/17 21:25 05/13/17 21:30 Urine Color YELLOW Urine Turbidity HAZY Urine pH 6.5 Urine Specific [place] 1.027 Urine Protein 30 mg/dL Urine Glucose (UA) NEG mg/dL Urine Ketones 10 mg/dL Urine Occult Blood NEG Urine Nitrite NEG Urine Bilirubin NEG Urine Urobilinogen 2.0 MG/DL Urine Leukocyte Esterase LARGE Urine RBC 3 /hpf Urine WBC 33 /hpf Urine Squamous Epithelial Cells 39 /hpf Urine Transitional Epithelial Cells /hpf Urine Renal Epithelial Cells 14 /hpf Urine Bacteria FEW /hpf Urine Mucus FEW /lpf Urine Yeast (Budding) RARE Microscopic Urinalysis Comment CULTURE INDICATED Urine Opiates Screen NEG Urine Barbiturates Screen NEG Urine Amphetamines Screen NEG Urine Benzodiazepines Screen NEG Urine Cocaine Screen NEG Urine Cannabinoids Screen NEG Fibronectin NEGATIVE MDM Medical Record Reviewed: No Narrative Course / MDM 21-year-old with a history of hyperthyroidism and new onset contractions. Urinalysis was sent as well as a fibronectin will continue monitoring to assess contractions Plan 21-year-old at 29 weeks 6 days with a urinary tract infection based on urinalysis and threatened labor fibronectin test result is negative and patient has a close cervix, she will be discharged home with limited activity for follow-up with her OB provider Macrobid for the next 10 days was prescribed Diagnosis Diagnosis: Primary Impression: 29 weeks gestation of Additional Impressions: Hyperthyroidism affecting in third trimester Urinary tract infection during in third trimester, antepartum Disposition: DISCHARGE HOME Scripts Nitrofurantoin Monohydrate Macrocrystals (Macrobid) 100 Mg Capsule 100 MG PO BID for Infection for 10 Days, #20 CAP 0 Refills Prov: Judy Saucedo MD 05/13/17 Judy Saucedo MD May 13, 2017 21:41
[2017-05-13 22:00] VITALS: RESP 18
[2017-05-13 22:30] VITALS: RESP 18
[2017-05-13 22:33] LABS: BACTERIA, URINE FEW /hpf; BILIRUBIN, URINE NEG (NEG); BLOOD, URINE NEG (NEG); GLUCOSE,URINE NEG (NEG); KETONE, URINE 10 mg/dL (NEG); MUCUS URINE FEW /lpf (OCC); NITRITE,URINE NEG (NEG); PH, URINE 6.5 (5.0-8.5); RENAL EPITHELIAL CELLS 14 /hpf; SQUAMOUS EPITHELIAL CELL URINE 39 /hpf (0-5); URINE COLOR YELLOW (YELLW/STRAW); URINE LEUKOCYTE ESTERASE LARGE (NEG)
[2017-05-13] MEDS ORDERED: MACR100C2 PO (22:49)
== END 2017-05-13 22:53 | disposition home or self-care (01) ==
LOC: HOBED 21:03
DX: O99.283 Endocrine, nutritional and metabolic diseases complicating pregnancy, third trimester (principal); O23.43 Unspecified infection of urinary tract in pregnancy, third trimester; E05.90 Thyrotoxicosis, unspecified without thyrotoxic crisis or storm; Z3A.29 29 weeks gestation of pregnancy; Z79.899 Other long term (current) drug therapy; Z88.5 Allergy status to narcotic agent; Z88.8 Allergy status to other drugs, medicaments and biological substances
CPT/HCPCS: 80307; 81001; 82731; 87086; 99283

== ENCOUNTER 2017-06-15 23:28 | Emergency (ER) | payer MEDICAID ==
[~2017-06-15 23:28] MED LIST changes: +MACR100C2 PO
--- NOTE | 2017-06-16 00:22 | PD ---
HPI Chief Complaint Contractions and leaking fluid Date Seen: Jun 16, 2017 Time Seen: 00:15 Travel History International Travel<30 Days: No Contact w/Intl Traveler<30Days: No Known Affected Area: No History of Present Illness HPI Patient is 21-year-old white female at 34-35 weeks patient of [facility] and presents complaining of contractions and leaking fluid, amnisure is negative, however she is hugo every 4-5 minutes no bleeding noted heart rate tracing is reactive Weeks Gestation: 34 Para: 1 : 5 Last Menstrual Period: Jun 16, 2017 Miscarriage: 3 History Obstetric History Obstetric History 1 vaginal delivery 3 early losses Social History Alcohol Use: No Tobacco Use: No Substance Abuse: No Allergies-Medications (Allergen,Severity, Reaction): Coded Allergies: acetaminophen (Verified Allergy, Intermediate, HIVES, 02/22/17) PT DENIES oxycodone (Verified Allergy, Intermediate, HIVES, 02/22/17) diphenhydramine (Verified Adverse Reaction, Intermediate, HYPERACTIVITY, 02/22/17) Home Meds Active Scripts Nitrofurantoin Monohydrate Macrocrystals (Macrobid) 100 Mg Capsule, 100 MG PO BID for Infection for 10 Days, #20 CAP 0 Refills Prov:Judy Saucedo MD 05/13/17 Metronidazole (Metronidazole) 500 Mg Tab, 500 MG PO BID for Infection, #14 TAB 0 Refills Prov:Sandra Harris MD R3 03/11/17 Reported Medications Nitrofurantoin Monohydrate Macrocrystals (Nitrofurantoin Monohydrate Macrocrystals) 100 Mg Cap, 100 MG PO BID for Infection, CAP 0 Refills 01/22/17 Pdwwvgmtbo-Scoiuuqwffsps-Xczxcbcj (Fioricet) 50-300-40 Mg Cap, 1 CAP PO Q4H Y for HEADACHE, CAP 0 Refills 01/22/17 Bupropion HCl ER 12 HR (Wellbutrin SR 12 HR) 100 Mg Tab, 100 MG PO Q12HR for Control Depression, TAB 0 Refills 01/22/17 Review of Systems General / Constitutional: No: Fever, Weight Gain, Chills, Other Eyes: No: Diploplia, Blurred Vision, Visual changes, Pain, Photophobia HENT: No: Headaches, Vertigo, Lightheadedness Cardiovascular: No: Irregular Rhythm, Chest Pain or Discomfort, Palpitations, Tachycardia, Syncope, Varicosities, Edema, Cyanosis Respiratory: No: Cough, Short of Breath, Other Gastrointestinal: Abdominal Pain, No: Nausea, Vomiting, Diarrhea Genitourinary: No: Decreased Urinary Output, Oliguria Musculoskeletal: No: Limited ROM, Weakness, Cramping, Edema, Pain Skin: No Rash, No Itching, No Dryness, No Lumps, No Change in Pigmentation, No Change in Nails, No Alopecia, No Lesions Neurologic: No: Weakness, Dizziness, Syncope, Focal Abnormalities, Coordination Problem, Headache, Slurred Speech, Seizures Psychiatric: No: Depression, Suicidal Ideations, Homicidal Ideation Endocrine: No: Heat Intolerance, Cold Intolerance, Polydipsia, Polyuria, Other Physical Exam Narrative GENERAL: Well-nourished, well-developed patient. SKIN: Warm and dry. HEAD: Normocephalic and atraumatic. EYES: No scleral icterus. No injection or drainage. ENT: No nasal drainage noted. Mucous membranes pink. Airway patent. NECK: Supple, trachea midline. No JVD. CARDIOVASCULAR: Regular rate and rhythm without murmurs, gallops, or rubs. RESPIRATORY: Breath sounds equal bilaterally. No accessory muscle use. BREASTS: Bilateral exam showed no masses , no retractions, no nipple discharge. ABDOMEN/GI: Abdomen soft, non-tender, bowel sounds present, no rebound, no guarding Gravid to [-34] weeks size Fundal Height: [34-] GENITOURINARY: External Genitalia: intact and normal in appearance BUS glands: [-] Cervix: [-post] Dilatation: [1-] Effacement: [-40] Station: [-3] Presentation: [vtx-] Membranes: [intact ] Uterine Contractions: [-q 5 min] FHT's: Category: [-1] Baseline: [-133] Reactive: [-R] Variability: [mod-] Decels: [none-] EXTREMITIES: No cyanosis or edema. BACK: Nontender without obvious deformity. No CVA tenderness. NEUROLOGICAL: Awake and alert. Motor and sensory grossly within normal limits. Five out of 5 muscle strength in all muscle groups. Normal speech. Data Data Labs amnisure neg UA dip mod leuks all else neg MDM Interpretation(s) Patient is 21-year-old white female at 34-35 weeks presents complaining of contractions and leaking of fluid. Her amnisure is negative but she is hugo every 5 minutes. Her cervix is 1/40/-3/vertex heart rate tracing is reactive contractions noted Plan Plan to IV hydrate, sedate with fentanyl medicate with subcu terbutaline as tocolytic measures Plan to draw lab work as it is not available Send urine downstairs for further evaluation Diagnosis Diagnosis: Primary Impression: Threatened labor, antepartum Additional Impression: 34 weeks gestation of Disposition: DISCHARGE HOME Condition: Stable Huey Cunningham II, MD Jun 16, 2017 00:22
[2017-06-16] MEDS ORDERED: TERBUTALINE INJ 1 MG/ML AMP SQ PRN (00:30)
[2017-06-16 00:39] VITALS: PULSE 80
[2017-06-16 00:47] LABS: AUTOMATED NEUTROPHIL # 10.7 TH/MM3 (1.8-7.7); BASOPHIL # 0.1 TH/MM3 (0-0.2); BASOPHIL % 0.8 % (0.0-2.0); EOSINOPHIL # 0.3 TH/MM3 (0-0.4); EOSINOPHIL % 1.7 % (0.0-4.0); HEMATOCRIT 30.3 % (35.0-46.0); HEMOGLOBIN 10.5 GM/DL (11.6-15.3); LYMPH % 18.9 % (9.0-44.0); LYMPHOCYTE # 2.8 TH/MM3 (1.0-4.8); MEAN CELL VOLUME 86.6 FL (80.0-100.0); MEAN CORPUSCULAR HEMOGLOBIN 30.1 PG (27.0-34.0); MEAN CORPUSCULAR HGB CONC 34.7 % (32.0-36.0); MEAN PLATELET VOLUME 9.3 FL (7.0-11.0); MONO % 6.7 % (0.0-8.0); NEUT % 71.9 % (16.0-70.0); PLATELET COUNT 329 TH/MM3 (150-450); RED CELL DISTRIBUTION WIDTH 13.7 % (11.6-17.2); WHITE BLOOD COUNT 14.9 TH/MM3 (4.0-11.0)
[2017-06-16 00:50] LABS: BILIRUBIN, URINE NEG (NEG); BLOOD, URINE NEG (NEG); GLUCOSE,URINE NEG (NEG); KETONE, URINE NEG (NEG); MUCUS URINE FEW /lpf (OCC); NITRITE,URINE NEG (NEG); PH, URINE 6.5 (5.0-8.5); SQUAMOUS EPITHELIAL CELL URINE 6 /hpf (0-5); URINE COLOR YELLOW (YELLW/STRAW); URINE LEUKOCYTE ESTERASE LARGE (NEG)
[2017-06-16] MEDS ORDERED: LACTATED RINGER'S 1000 ML INJ 1,000 ML IV SCH (01:00)
== END 2017-06-16 02:21 | disposition home or self-care (01) ==
LOC: HOBED 23:28
DX: O60.03 Preterm labor without delivery, third trimester (principal); O62.9 Abnormality of forces of labor, unspecified; Z3A.34 34 weeks gestation of pregnancy
CPT/HCPCS: 36415; 59025; 80074; 80307; 81001; 84112; 85025; 86592; 86703; 86762; 86850; 86900; 86901; 96372; 96374; 99284; G0481; J3010; J3105; J7120

== ENCOUNTER 2017-06-22 13:45 | Emergency (ER) | payer MEDICAID ==
--- NOTE | 2017-06-22 14:26 | PD ---
HPI Chief Complaint Vaginal leaking Date Seen: Jun 22, 2017 Time Seen: 14:22 Travel History International Travel<30 Days: No Contact w/Intl Traveler<30Days: No Known Affected Area: No History of Present Illness HPI 21-year-old who is 35 weeks and 2 days comes in complaining of leaking on 3 different occasions this morning in small amounts. Patient has normal movement and denies vaginal bleeding. Patient has hypothyroidism in the but otherwise it has been an uncomplicated antepartum course. She had a history of a normal vaginal delivery in the past although the baby was small for gestational age. Radiographs during this has been normal Weeks Gestation: 35 Para: 1 : 5 History Past Medical History Narrative Medical Hypothyroidism Medical History: Denies Significant Hx Obstetric History Obstetric History Spontaneous vaginal delivery Past Surgical History Surgical History: No Previous Surgery Family History Family History: Negative Social History Alcohol Use: No Tobacco Use: No Substance Abuse: No Allergies-Medications (Allergen,Severity, Reaction): Coded Allergies: acetaminophen (Verified Allergy, Intermediate, HIVES, 02/22/17) PT DENIES oxycodone (Verified Allergy, Intermediate, HIVES, 02/22/17) diphenhydramine (Verified Adverse Reaction, Intermediate, HYPERACTIVITY, 02/22/17) Home Meds Active Scripts Nitrofurantoin Monohydrate Macrocrystals (Macrobid) 100 Mg Capsule, 100 MG PO BID for Infection for 10 Days, #20 CAP 0 Refills Prov:Judy Saucedo MD 05/13/17 Metronidazole (Metronidazole) 500 Mg Tab, 500 MG PO BID for Infection, #14 TAB 0 Refills Prov:Sandra Harris MD R3 03/11/17 Reported Medications Nitrofurantoin Monohydrate Macrocrystals (Nitrofurantoin Monohydrate Macrocrystals) 100 Mg Cap, 100 MG PO BID for Infection, CAP 0 Refills 01/22/17 Sbsrekfuhg-Bmdqyqkkzfqrl-Fdhczhjc (Fioricet) 50-300-40 Mg Cap, 1 CAP PO Q4H Y for HEADACHE, CAP 0 Refills 01/22/17 Bupropion HCl ER 12 HR (Wellbutrin SR 12 HR) 100 Mg Tab, 100 MG PO Q12HR for Control Depression, TAB 0 Refills 01/22/17 Review of Systems Except as stated in HPI: all other systems reviewed are Neg Physical Exam Narrative GENERAL: Well-nourished, well-developed patient. SKIN: Warm and dry. HEAD: Normocephalic and atraumatic. EYES: No scleral icterus. No injection or drainage. ENT: No nasal drainage noted. Mucous membranes pink. Airway patent. NECK: Supple, trachea midline. No JVD. ABDOMEN/GI: Abdomen soft, non-tender, bowel sounds present, no rebound, no guarding Gravid to [-33] weeks size Fundal Height: [-] GENITOURINARY: External Genitalia: intact and normal in appearance BUS glands: [-Normal] Cervix: [-Posterior] Dilatation: [-Fingertip] Effacement: [Thick-] Station: [-High] Presentation: [-] Vertex Membranes: [intact or ruptured] intact Uterine Contractions: [-] Absent FHT's: Category: [-] 1 Baseline: [-] 140 Reactive: [-] Moderate Variability: [-] Moderate Decels: [-] Absent EXTREMITIES: No cyanosis or edema. BACK: Nontender without obvious deformity. No CVA tenderness. NEUROLOGICAL: Awake and alert. Motor and sensory grossly within normal limits. Five out of 5 muscle strength in all muscle groups. Normal speech. Data Data Vital Signs Reviewed: Yes [facility] Medical Record Reviewed: Yes Plan 21-year-old female who is at 35 weeks gestation with intact amniotic membranes by examination with a negative amateur Follow-up with OB provider next week as scheduled Diagnosis Diagnosis: Primary Impression: 35 weeks gestation of Additional Impressions: Intact amniotic membranes during in third trimester Vaginal discharge during in third trimester Disposition: 01 DISCHARGE HOME Judy Saucedo MD Jun 22, 2017 14:26
== END 2017-06-22 14:35 | disposition home or self-care (01) ==
LOC: HOBED 13:45
DX: O99.89 Other specified diseases and conditions complicating pregnancy, childbirth and the puerperium (principal); N89.8 Other specified noninflammatory disorders of vagina; O99.283 Endocrine, nutritional and metabolic diseases complicating pregnancy, third trimester; E03.9 Hypothyroidism, unspecified; Z3A.35 35 weeks gestation of pregnancy
CPT/HCPCS: 59025; 84112

== ENCOUNTER 2017-06-23 02:37 | Observation (INO) | payer MEDICAID ==
[2017-06-23] VITALS (14 sets, daily range): BP systolic 100–108; BP diastolic 40–51; PULSE 84–100; RESP 16–18; TEMP 96.7–98.2
--- NOTE | 2017-06-23 03:14 | PD ---
HPI Chief Complaint Contractions Date Seen: Jun 23, 2017 Time Seen: 03:09 Travel History International Travel<30 Days: No Contact w/Intl Traveler<30Days: No Known Affected Area: No History of Present Illness HPI 21-year-old who is at 35 weeks in 4 days comes in complaining of contractions. She was here earlier yesterday for possible rupture membranes and had a negative testing performed. Patient states that she is leaking again and the amnio sure here is negative. Contractions began 2 hours ago, no vaginal bleeding, good movement. No group B strep has been performed due to gestational age. Weeks Gestation: 35 Para: 1 : 5 History Past Medical History Narrative Medical hypothyroid Obstetric History Obstetric History Spontaneous vaginal delivery, baby was 5 lbs. 11 oz. at 39 weeks Past Surgical History Surgical History: No Previous Surgery Family History Family History: Negative Social History Alcohol Use: No Tobacco Use: No Substance Abuse: No Allergies-Medications (Allergen,Severity, Reaction): Coded Allergies: acetaminophen (Verified Allergy, Intermediate, HIVES, 02/22/17) PT DENIES oxycodone (Verified Allergy, Intermediate, HIVES, 02/22/17) diphenhydramine (Verified Adverse Reaction, Intermediate, HYPERACTIVITY, 02/22/17) Home Meds Active Scripts Nitrofurantoin Monohydrate Macrocrystals (Macrobid) 100 Mg Capsule, 100 MG PO BID for Infection for 10 Days, #20 CAP 0 Refills Prov:Judy Saucedo MD 05/13/17 Metronidazole (Metronidazole) 500 Mg Tab, 500 MG PO BID for Infection, #14 TAB 0 Refills Prov:Sandra Harris MD R3 03/11/17 Reported Medications Nitrofurantoin Monohydrate Macrocrystals (Nitrofurantoin Monohydrate Macrocrystals) 100 Mg Cap, 100 MG PO BID for Infection, CAP 0 Refills 01/22/17 Vozfgcldex-Aloqdwzltkezp-Ugwzvguh (Fioricet) 50-300-40 Mg Cap, 1 CAP PO Q4H Y for HEADACHE, CAP 0 Refills 01/22/17 Bupropion HCl ER 12 HR (Wellbutrin SR 12 HR) 100 Mg Tab, 100 MG PO Q12HR for Control Depression, TAB 0 Refills 01/22/17 Review of Systems Except as stated in HPI: all other systems reviewed are Neg Physical Exam Narrative GENERAL: Well-nourished, well-developed patient. SKIN: Warm and dry. HEAD: Normocephalic and atraumatic. EYES: No scleral icterus. No injection or drainage. ENT: No nasal drainage noted. Mucous membranes pink. Airway patent. NECK: Supple, trachea midline. No JVD. CARDIOVASCULAR: Regular rate and rhythm without murmurs, gallops, or rubs. RESPIRATORY: Breath sounds equal bilaterally. No accessory muscle use. ABDOMEN/GI: Abdomen soft, non-tender, bowel sounds present, no rebound, no guarding Gravid to [-32] weeks size Fundal Height: [-] GENITOURINARY: External Genitalia: intact and normal in appearance BUS glands: [-] Normal Cervix: [-] Posterior Dilatation: [-] 1 Effacement: [-] 50 Station: [-] -3 Presentation: [-] Vertex Membranes: [intact or ruptured] intact Uterine Contractions: [-] Every 3 minutes FHT's: Category: [-] 1 Baseline: [-] 140 Reactive: [-] Moderate Variability: [-] Moderate Decels: [-] Absent EXTREMITIES: No cyanosis or edema. BACK: Nontender without obvious deformity. No CVA tenderness. NEUROLOGICAL: Awake and alert. Motor and sensory grossly within normal limits. Five out of 5 muscle strength in all muscle groups. Normal speech. Data Data Vital Signs Reviewed: Yes [facility] Medical Record Reviewed: Yes Plan 21-year-old at 35 weeks 4 days comes in with contractions. Minimal cervical change since yesterday, cervix was closed yesterday and now it is 1 cm. Intact amniotic membranes Size less than dates Plan observation period here with IV hydration, possible betamethsone, and sonogram in am if she does not go into labor Tocolysis is not indicated due to gestational age Diagnosis Diagnosis: Primary Impression: 35 weeks gestation of Additional Impressions: Hypothyroidism affecting in third trimester uterine contractions in third trimester, antepartum Judy Saucedo MD Jun 23, 2017 03:14
[2017-06-23] MEDS ORDERED: TERBUTALINE INJ 1 MG/ML AMP SQ ONE (03:15)
[2017-06-23] MEDS ORDERED: ONDANSETRON HCL 4 MG/2 ML VIAL IV PUSH PRN (03:15)
[2017-06-23] MEDS ORDERED: SODIUM CHLORIDE 0.9% FLUSH 10 ML FLUSH IV FLUSH PRN (03:15)
[2017-06-23] MEDS ORDERED: LACTATED RINGER'S 1000 ML INJ 1,000 ML IV ONE (03:30)
[2017-06-23] MEDS: BETAMETHASONE SOD PHOS/ACETATE SUSP 30 MG/5 ML VIAL IM SCH (03:39)
[2017-06-23 03:55] LABS: BILIRUBIN, URINE NEG (NEG); BLOOD, URINE MOD (NEG); GLUCOSE,URINE NEG (NEG); KETONE, URINE NEG (NEG); NITRITE,URINE NEG (NEG); SQUAMOUS EPITHELIAL CELL URINE 1 /hpf (0-5); URINE COLOR LIGHT-YELLOW (YELLW/STRAW); URINE LEUKOCYTE ESTERASE MOD (NEG)
[2017-06-23 03:57] LABS: AUTOMATED NEUTROPHIL # 14.1 TH/MM3 (1.8-7.7); BASOPHIL # 0.1 TH/MM3 (0-0.2); BASOPHIL % 0.7 % (0.0-2.0); EOSINOPHIL # 0.1 TH/MM3 (0-0.4); EOSINOPHIL % 0.8 % (0.0-4.0); HEMATOCRIT 34.2 % (35.0-46.0); HEMOGLOBIN 11.6 GM/DL (11.6-15.3); LYMPH % 17.7 % (9.0-44.0); LYMPHOCYTE # 3.3 TH/MM3 (1.0-4.8); MEAN CELL VOLUME 88.3 FL (80.0-100.0); MEAN CORPUSCULAR HEMOGLOBIN 29.8 PG (27.0-34.0); MEAN CORPUSCULAR HGB CONC 33.8 % (32.0-36.0); MEAN PLATELET VOLUME 9.6 FL (7.0-11.0); MONO % 5.5 % (0.0-8.0); NEUT % 75.3 % (16.0-70.0); PLATELET COUNT 330 TH/MM3 (150-450); RED BLOOD COUNT 3.88 MIL/MM3 (4.00-5.30); RED CELL DISTRIBUTION WIDTH 13.8 % (11.6-17.2); WHITE BLOOD COUNT 18.7 TH/MM3 (4.0-11.0)
[2017-06-23 05:37] LABS: BICARBONATE 21.5 MEQ/L (21.0-32.0); CALCIUM 9.1 MG/DL (8.5-10.1); CREATININE 0.74 MG/DL (0.50-1.00)
--- NOTE | 2017-06-23 06:40 | HHI.HP ---
History & Physical H&P HPI Chief Complaint Contractions Date Seen: Jun 23, 2017 Time Seen: 03:09 Travel History International Travel<30 Days: No Contact w/Intl Traveler<30Days: No Known Affected Area: No History of Present Illness HPI 21-year-old who is at 35 weeks in 4 days comes in complaining of contractions. She was here earlier yesterday for possible rupture membranes and had a negative testing performed. Patient states that she is leaking again and the amnio sure here is negative. Contractions began 2 hours ago, no vaginal bleeding, good movement. No group B strep has been performed due to gestational age. Weeks Gestation: 35 Para: 1 : 5 History Past Medical History Narrative Medical hypothyroid Obstetric History Obstetric History Spontaneous vaginal delivery, baby was 5 lbs. 11 oz. at 39 weeks Past Surgical History Surgical History: No Previous Surgery Family History Family History: Negative Social History Alcohol Use: No Tobacco Use: No Substance Abuse: No Allergies-Medications (Allergen,Severity, Reaction): Coded Allergies: acetaminophen (Verified Allergy, Intermediate, HIVES, 02/22/17) PT DENIES oxycodone (Verified Allergy, Intermediate, HIVES, 02/22/17) diphenhydramine (Verified Adverse Reaction, Intermediate, HYPERACTIVITY, 02/22/17) Home Meds Active Scripts Nitrofurantoin Monohydrate Macrocrystals (Macrobid) 100 Mg Capsule, 100 MG PO BID for Infection for 10 Days, #20 CAP 0 Refills Prov:Judy Saucedo MD 05/13/17 Metronidazole (Metronidazole) 500 Mg Tab, 500 MG PO BID for Infection, #14 TAB 0 Refills Prov:Sandra Harris MD R3 03/11/17 Reported Medications Nitrofurantoin Monohydrate Macrocrystals (Nitrofurantoin Monohydrate Macrocrystals) 100 Mg Cap, 100 MG PO BID for Infection, CAP 0 Refills 01/22/17 Hhentwpluw-Igssqzfwivdud-Zjbflsbh (Fioricet) 50-300-40 Mg Cap, 1 CAP PO Q4H Y for HEADACHE, CAP 0 Refills 01/22/17 Bupropion HCl ER 12 HR (Wellbutrin SR 12 HR) 100 Mg Tab, 100 MG PO Q12HR for Control Depression, TAB 0 Refills 01/22/17 Review of Systems Except as stated in HPI: all other systems reviewed are Neg Physical Exam Narrative GENERAL: Well-nourished, well-developed patient. SKIN: Warm and dry. HEAD: Normocephalic and atraumatic. EYES: No scleral icterus. No injection or drainage. ENT: No nasal drainage noted. Mucous membranes pink. Airway patent. NECK: Supple, trachea midline. No JVD. CARDIOVASCULAR: Regular rate and rhythm without murmurs, gallops, or rubs. RESPIRATORY: Breath sounds equal bilaterally. No accessory muscle use. ABDOMEN/GI: Abdomen soft, non-tender, bowel sounds present, no rebound, no guarding Gravid to [-32] weeks size Fundal Height: [-] GENITOURINARY: External Genitalia: intact and normal in appearance BUS glands: [-] Normal Cervix: [-] Posterior Dilatation: [-] 1 Effacement: [-] 50 Station: [-] -3 Presentation: [-] Vertex Membranes: [intact or ruptured] intact Uterine Contractions: [-] Every 3 minutes FHT's: Category: [-] 1 Baseline: [-] 140 Reactive: [-] Moderate Variability: [-] Moderate Decels: [-] Absent EXTREMITIES: No cyanosis or edema. BACK: Nontender without obvious deformity. No CVA tenderness. NEUROLOGICAL: Awake and alert. Motor and sensory grossly within normal limits. Five out of 5 muscle strength in all muscle groups. Normal speech. Data Data Vital Signs Reviewed: Yes [facility] Medical Record Reviewed: Yes Plan 21-year-old at 35 weeks 4 days comes in with contractions. Minimal cervical change since yesterday, cervix was closed yesterday and now it is 1 cm. Intact amniotic membranes Size less than dates Plan observation period here with IV hydration, possible betamethsone, and sonogram in am if she does not go into labor Tocolysis is not indicated due to gestational age Diagnosis Diagnosis: Primary Impression: 35 weeks gestation of Additional Impressions: Hypothyroidism affecting in third trimester uterine contractions in third trimester, antepartum H&P used from Dr. Saucedo's ED note with her permission. Cezar Mary MD R2 Jun 23, 2017 06:40
--- NOTE | 2017-06-23 08:21 | PD.OB.ANTE ---
Subjective Interval History Patient seen and evaluated. No new complaints. Patient endorses good movement and denies any loss of fluid, bleeding, discharge or dysuria. Patient reports intermittent contractions occurring randomly up to 30min to an hour apart lasting approximately 15 minutes. Denies a complete ROS including but not limited to any fevers, chills, SOB, chest pain, NVD, ABD pain, or calf tenderness. Antepartum ROS: Reports: movement normal, Contractions, Denies: New complaints, Loss of fluid, Vaginal bleeding Objective Vital Signs Vital Signs Date Time Temp Pulse Resp B/P (MAP) Pulse Ox O2 Delivery O2 Flow Rate FiO2 06/23/17 08:00 18 Lab & Micro Results Test 06/23/17 03:16 06/23/17 04:32 White Blood Count 18.7 TH/MM3 Red Blood Count 3.88 MIL/MM3 Hemoglobin 11.6 GM/DL Hematocrit 34.2 % Mean Corpuscular Volume 88.3 FL Mean Corpuscular Hemoglobin 29.8 PG Mean Corpuscular Hemoglobin Concent 33.8 % Red Cell Distribution Width 13.8 % Platelet Count 330 TH/MM3 Mean Platelet Volume 9.6 FL Neutrophils (%) (Auto) 75.3 % Lymphocytes (%) (Auto) 17.7 % Monocytes (%) (Auto) 5.5 % Eosinophils (%) (Auto) 0.8 % Basophils (%) (Auto) 0.7 % Neutrophils # (Auto) 14.1 TH/MM3 Lymphocytes # (Auto) 3.3 TH/MM3 Monocytes # (Auto) 1.0 TH/MM3 Eosinophils # (Auto) 0.1 TH/MM3 Basophils # (Auto) 0.1 TH/MM3 CBC Comment DIFF FINAL Differential Comment Urine Color LIGHT-YELLOW Urine Turbidity CLEAR Urine pH 7.0 Urine Specific [place] 1.004 Urine Protein 30 mg/dL Urine Glucose (UA) NEG mg/dL Urine Ketones NEG mg/dL Urine Occult Blood MOD Urine Nitrite NEG Urine Bilirubin NEG Urine Urobilinogen LESS THAN 2.0 MG/DL Urine Leukocyte Esterase MOD Urine RBC 2 /hpf Urine WBC 7 /hpf Urine Squamous Epithelial Cells 1 /hpf Microscopic Urinalysis Comment CULT NOT INDICATED Urine Opiates Screen NEG Urine Barbiturates Screen NEG Urine Amphetamines Screen NEG Urine Benzodiazepines Screen NEG Urine Cocaine Screen NEG Urine Cannabinoids Screen NEG Blood Urea Nitrogen 4 MG/DL Creatinine 0.74 MG/DL Random Glucose 111 MG/DL Calcium Level 9.1 MG/DL Sodium Level 140 MEQ/L Potassium Level 2.7 MEQ/L Chloride Level 105 MEQ/L Carbon Dioxide Level 21.5 MEQ/L Anion Gap 14 MEQ/L Estimat Glomerular Filtration Rate 97 ML/MIN Physical Exam GENERAL: Well-nourished, well-developed patient. CARDIOVASCULAR: Regular rate and rhythm without murmurs, gallops, or rubs. RESPIRATORY: Breath sounds equal bilaterally. No accessory muscle use. ABDOMEN/GI: Abdomen soft, non-tender. Fundus: 35 weeks FHT's: Category: 1 Baseline: 150s Reactive: Positive Variability: Moderate Decels: None EXTREMITIES: No cyanosis or edema, non-tender, without signs of DVT. Assessment and Plan Problem List: (1) 35 weeks gestation of ICD Codes: Z3A.35 - 35 weeks gestation of Status: Acute (2) uterine contractions in third trimester, antepartum ICD Codes: O47.03 - False labor before 37 completed weeks of gestation, third trimester Status: Acute (3) Hypothyroidism affecting in third trimester ICD Codes: O99.283 - Endocrine, nutritional and metabolic diseases complicating , third trimester; E03.9 - Hypothyroidism, unspecified Status: Acute Assessment and Plan Ms. Sykes is a 21 y/o presenting at 35/4 weeks gestation with contractions 1. IUP at 35 weeks -Continue routine antepartum care -Encourage PNV and hydration -Category 1 FHT, reassuring 2. contractions -Betamethasone given 06/23 at 0339, second dose due at 06/24 at 0339 -US ordered for evaluation DW: Cezar Martinez MD R2 Jun 23, 2017 08:21
[2017-06-23] MEDS: POTASSIUM CHLOR 20 MEQ PREMIX 100 ML IV SCH ×2 (08:24→10:30)
[2017-06-23] MEDS ORDERED: SODIUM CHLORIDE 0.9% FLUSH 10 ML FLUSH IV FLUSH SCH (09:00)
[2017-06-23] MEDS ORDERED: SODIUM CHLOR 0.9% 1000 ML INJ 1,000 ML IV SCH (09:00)
[2017-06-23] MEDS ORDERED: FAMOTIDINE 20 MG TAB PO ONE (12:00)
[2017-06-24] MEDS: BETAMETHASONE SOD PHOS/ACETATE SUSP 30 MG/5 ML VIAL IM SCH (03:40)
[2017-06-24 03:42] VITALS: BP 107/44; PULSE 83; RESP 18; TEMP 98.3
[2017-06-24] MEDS ORDERED: FAMOTIDINE 20 MG TAB PO SCH (04:00)
--- NOTE | 2017-06-24 08:42 | PD.OB.ANTE ---
Subjective Diagnosis: (1) 35 weeks gestation of Diagnosis: Principal (2) uterine contractions in third trimester, antepartum Diagnosis: Principal (3) Hypothyroidism affecting in third trimester Diagnosis: Principal Interval History Patient seen and examined this morning. She states she is feeling well. She denies any further contractions. Denies leakage of fluid or other abnormal vaginal discharge. Endorses +FM. Denies fevers, chest pain, dyspnea, cough. Antepartum ROS: Reports: movement normal, Denies: New complaints, Loss of fluid, Vaginal bleeding, Contractions ( Kendell Mahan MD R2) Objective Vital Signs Vital Signs Date Time Temp Pulse Resp B/P (MAP) Pulse Ox O2 Delivery O2 Flow Rate FiO2 06/24/17 03:42 83 18 107/44 (65) 06/24/17 03:42 98.3 06/23/17 23:13 16 06/23/17 23:13 84 108/45 (66) 06/23/17 23:13 98.1 06/23/17 22:30 86 06/23/17 22:25 93 06/23/17 22:20 85 06/23/17 22:15 98 06/23/17 19:36 96.7 06/23/17 19:36 18 06/23/17 16:03 96 104/51 (68) 06/23/17 16:00 18 06/23/17 15:00 98.2 06/23/17 13:00 17 06/23/17 10:00 18 06/23/17 09:11 100 100/40 (60) 06/23/17 09:00 17 Lab & Micro Results Test 06/23/17 14:15 Potassium Level 3.9 MEQ/L Physical Exam GENERAL: Well-nourished, well-developed patient. CARDIOVASCULAR: Regular rate and rhythm without murmurs, gallops, or rubs. RESPIRATORY: Breath sounds equal bilaterally. No accessory muscle use. ABDOMEN/GI: Abdomen soft, non-tender. Fundus: 35 weeks FHT's: Category: I Baseline: 140s Reactive: Positive Variability: Moderate Decels: None EXTREMITIES: No cyanosis or edema, non-tender, without signs of DVT. (Kendell Mahan MD R2) Assessment and Plan Problem List: (1) 35 weeks gestation of ICD Codes: Z3A.35 - 35 weeks gestation of Status: Acute (2) uterine contractions in third trimester, antepartum ICD Codes: O47.03 - False labor before 37 completed weeks of gestation, third trimester Status: Acute (3) Hypothyroidism affecting in third trimester ICD Codes: O99.283 - Endocrine, nutritional and metabolic diseases complicating , third trimester; E03.9 - Hypothyroidism, unspecified Status: Acute Assessment and Plan Patient is a 21 y/o at 35/5 weeks gestation presented with contractions 1. IUP at 35 weeks -Continue routine antepartum care -Encourage PNV and hydration -Category 1 FHT, reassuring -Patient instructed to follow up as an outpatient for continued care, has f/u appt on 06/26 at [facility] 2. contractions -Betamethasone given 06/23 at 03:39, second dose given at 06/24 at 03:[address] Delaney (Kendell Mahan MD R2) Assessment and Plan Patient seen and evaluated with resident under direct supervision, agree with assessment and plan. (Mac Delaney MD) Kendell Mahan MD R2 Jun 24, 2017 08:42 Mac Delaney MD June 29, 2017 10:22
--- NOTE | 2017-06-24 09:04 | HHI.DCPOC ---
Discharge Care Plan Diagnosis: (1) uterine contractions in third trimester, antepartum (2) 35 weeks gestation of Report Symptoms to Your Doctor -Temperature above 100.5 degrees -Redness, of incision or excessive or foul smelling drainage -Unusual pain or calf pain -Increased vaginal bleeding -Painful or difficulty urinating -Feelings of extreme sadness or anxiety after 2 weeks Goals to Promote Your Health * To prevent worsening of your condition and complications, follow up with your OB provider within 2-3 days after hospital discharge for continued antepartum care. Directions to Meet Your Goals Take your medications as prescribed Follow your dietary instruction Follow activity as directed Ensure plenty of rest for recovery Drink fluids for hydration Keep your appointments as scheduled Take your immunizations and boosters as scheduled If your symptoms worsen call your PCP, if no PCP go to Urgent Care Center or Emergency Room Smoking is Dangerous to Your Health. Avoid second hand smoke Call the 24-hour crisis hotline for domestic abuse at Kendell Mahan MD R2 Jun 24, 2017 09:04
[2017-06-24 09:36] VITALS: TEMP 98.4
[2017-06-24 09:37] VITALS: RESP 16
== END 2017-06-24 09:47 | disposition home or self-care (01) ==
LOC: HOBED 02:37 → H2EA 03:11
PROVIDERS: ADMIT Obstetrics & Gynecology Obstetrics; ATTEND Obstetrics & Gynecology Obstetrics
DX: O60.03 Preterm labor without delivery, third trimester (principal); O99.283 Endocrine, nutritional and metabolic diseases complicating pregnancy, third trimester; E03.9 Hypothyroidism, unspecified; Z3A.35 35 weeks gestation of pregnancy
CPT/HCPCS: 76815; 80048; 80307; 81001; 84112; 84132; 85025; G0481; J0702; J3105; J3480; J7030; J7120; 59025; 96372; G0378

== ENCOUNTER 2017-07-07 21:14 | Emergency (ER) | payer MEDICAID ==
--- NOTE | 2017-07-07 22:19 | PD ---
HPI Chief Complaint Contractions Date Seen: July 07, 2017 Time Seen: 22:15 Travel History International Travel<30 Days: No Contact w/Intl Traveler<30Days: No Known Affected Area: No History of Present Illness HPI 22-year-old 5 para 1 with an EDC of 07/23/2017, the patient reports onset of contractions about 3 this morning. She denies any leakage of fluid or bleeding. She reports good movement. History Past Medical History Narrative Medical Hypothyroidism Past Surgical History Surgical History: No Previous Surgery Family History Family History: Negative Social History Alcohol Use: No Tobacco Use: No Substance Abuse: No Allergies-Medications (Allergen,Severity, Reaction): Coded Allergies: acetaminophen (Verified Allergy, Intermediate, HIVES, 02/22/17) PT DENIES oxycodone (Verified Allergy, Intermediate, HIVES, 02/22/17) diphenhydramine (Verified Adverse Reaction, Intermediate, HYPERACTIVITY, 02/22/17) Home Meds No Active Prescriptions or Reported Meds Review of Systems Except as stated in HPI: all other systems reviewed are Neg Physical Exam Narrative GENERAL: Well-nourished, well-developed patient. SKIN: Warm and dry. HEAD: Normocephalic and atraumatic. EYES: No scleral icterus. No injection or drainage. ENT: No nasal drainage noted. Mucous membranes pink. Airway patent. NECK: Supple, trachea midline. No JVD. ABDOMEN/GI: Abdomen soft, non-tender, bowel sounds present, no rebound, no guarding Gravid to [-] weeks size Fundal Height: [-] GENITOURINARY: External Genitalia: intact and normal in appearance BUS glands: [-] Cervix: [-] Dilatation: [1-2-] Effacement: [30-] Station: [-] Presentation: [-] Membranes: [intact] Uterine Contractions: [-irreg mild] FHT's: Category: [-1] Baseline: [-] Reactive: [-] Variability: [-] Decels: [-] EXTREMITIES: No cyanosis or edema. BACK: Nontender without obvious deformity. No CVA tenderness. NEUROLOGICAL: Awake and alert. Motor and sensory grossly within normal limits. Five out of 5 muscle strength in all muscle groups. Normal speech. Data Data Vital Signs Reviewed: Yes MDM Medical Record Reviewed: Yes Narrative Course / MDM Assessment: 37+ week intrauterine with irregular contractions without cervical change Plan: Labor precautions were reviewed. She will keep her appointment on Saturday. Diagnosis Diagnosis: Primary Impression: 37 weeks gestation of Additional Impression: Irregular uterine contractions Disposition: DISCHARGE HOME Condition: Good Scripts No Active Prescriptions or Reported Meds Mac Delaney MD July 07, 2017 22:19
== END 2017-07-07 22:27 | disposition home or self-care (01) ==
LOC: HOBED 21:14
DX: O62.2 Other uterine inertia (principal); O99.283 Endocrine, nutritional and metabolic diseases complicating pregnancy, third trimester; E03.9 Hypothyroidism, unspecified; Z3A.37 37 weeks gestation of pregnancy; Z88.5 Allergy status to narcotic agent
CPT/HCPCS: 59025; 84112

== ENCOUNTER 2017-07-08 09:15 | Inpatient (IN) | payer MEDICAID ==
[2017-07-08] VITALS (12 sets, daily range): BP systolic 103–117; BP diastolic 55–69; PULSE 69–95; RESP 16–20; TEMP 98–98.4; O2SAT 98
[2017-07-08] MEDS ORDERED: LACTATED RINGER'S 1000 ML INJ 1,000 ML IV PRN (09:40)
[2017-07-08] MEDS ORDERED: MINERAL OIL 10 ML VIAL TOPICAL PRN (09:45)
[2017-07-08] MEDS ORDERED: CITRIC ACID-SODIUM CITRATE LIQ 30 ML UDC PO SCH (09:45)
[2017-07-08] MEDS ORDERED: SODIUM CHLORID 0.9% 500 ML INJ 500 ML IV PRN (09:45)
[2017-07-08] MEDS ORDERED: LIDOCAINE HCL 1% 50 ML VIAL INFIL PRN (09:45)
[2017-07-08] MEDS ORDERED: OXYTOCIN 30 UNITS-500ML PREMIX 500 ML IV ONE (09:45)
[2017-07-08] MEDS ORDERED: LIDOCAINE HCL 1% 50 ML VIAL I-DERMAL PRN (09:45)
[2017-07-08] MEDS: LACTATED RINGER'S 1000 ML INJ 1,000 ML IV SCH ×2 (09:52→10:56)
--- NOTE | 2017-07-08 09:55 | PD ---
HPI Chief Complaint contractions Date Seen: July 08, 2017 Time Seen: 09:43 Travel History International Travel<30 Days: No Contact w/Intl Traveler<30Days: No History of Present Illness HPI Patient is a 22-year-old at 37/6 weeks gestation presents due to contraction occurring less than 2 minutes apart. Patient denies any loss of fluid, vaginal bleeding. Endorses movement about 10 movements in the past 2 hours. Weeks Gestation: 37 Para: 1 : 5 Miscarriage: 3 History Past Medical History Narrative Medical Hypothyroid Obstetric History Obstetric History Denies any complication with this current 1 no complications 3 miscarriages Past Surgical History Narrative Surgical Knee surgery Family History Family History: Negative Social History Alcohol Use: No Tobacco Use: Yes (Half a pack a day) Substance Abuse: No Allergies-Medications (Allergen,Severity, Reaction): Coded Allergies: acetaminophen (Verified Allergy, Intermediate, HIVES, 02/22/17) PT DENIES oxycodone (Verified Allergy, Intermediate, HIVES, 02/22/17) diphenhydramine (Verified Adverse Reaction, Intermediate, HYPERACTIVITY, 02/22/17) Home Meds No Active Prescriptions or Reported Meds Review of Systems Except as stated in HPI: all other systems reviewed are Neg Physical Exam Narrative GENERAL: Well-nourished, well-developed patient. SKIN: Warm and dry. HEAD: Normocephalic and atraumatic. EYES: No scleral icterus. No injection or drainage. ENT: No nasal drainage noted. Mucous membranes pink. Airway patent. NECK: Supple, trachea midline. No JVD. CARDIOVASCULAR: Regular rate and rhythm without murmurs, gallops, or rubs. RESPIRATORY: Breath sounds equal bilaterally. No accessory muscle use. BREASTS: Bilateral exam showed no masses , no retractions, no nipple discharge. ABDOMEN/GI: Abdomen soft, non-tender, bowel sounds present, no rebound, no guarding Gravid to 37/6 weeks size GENITOURINARY: External Genitalia: intact and normal in appearance Cervix; mid position Dilatation: 4 Effacement: 100 Station: -1 Presentation: vertex Membranes: intact Uterine Contractions: every min FHT's: Category: 1 Baseline: 160 Reactive: yes Variability: moderate Decels: none EXTREMITIES: No cyanosis or edema. BACK: Nontender without obvious deformity. No CVA tenderness. NEUROLOGICAL: Awake and alert. Motor and sensory grossly within normal limits. Five out of 5 muscle strength in all muscle groups. Normal speech. Data Data Vital Signs Reviewed: Yes Orders Orders Ob (2e) Additional Admit Info (07/08/17 09:20) Admit To Inpatient (07/08/17 ) Code Status (07/08/17 09:40) Vital Signs (Adult) .Per protocol (07/08/17 09:40) Heart (07/08/17 09:40) Amnioinfusion (07/08/17 09:40) Urinary Catheter Management .ONCE (07/08/17 09:40) Diet Liquid (07/08/17 Breakfast) Lactated Ringer's 1000 Ml Inj (Lr 1000 M (07/08/17 09:40) Lactated Ringer's 1000 Ml Inj (Lr 1000 M (07/08/17 09:40) Sodium Chlorid 0.9% 500 Ml Inj (Ns 500 M (07/08/17 09:45) Sodium Chlor 0.9% 1000 Ml Inj (Ns 1000 M (07/08/17 10:00) Lidocaine 1% Inj (50 Ml) (Xylocaine 1% I (07/08/17 09:45) Citric Acid-Sodium Citrate Liq (Bicitra (07/08/17 09:45) Fentanyl Inj (Fentanyl Inj) (07/08/17 09:45) Fentanyl Inj (Fentanyl Inj) (07/08/17 09:45) Complete Blood Count With Diff (07/08/17 09:40) Hold Clot (07/08/17 09:40) Abo/Rh Blood Type (07/08/17 09:40) Urinalysis - C+S If Indicated (07/08/17 09:40) Ob/Psych Drug Screen, Urine (07/08/17 09:40) Resp Oxygen Non Rebreathe Mask (07/08/17 ) ^ Epidural / Intrathecal Infus (07/08/17 09:40) Oxytocin 30 Units-500ml Premix (Pitocin (07/08/17 09:45) Lidocaine 1% Inj (50 Ml) (Xylocaine 1% I (07/08/17 09:45) Light Mineral Oil (Muri-Lube Oil) (07/08/17 09:45) Inpatient Certification (07/08/17 ) Specimen To Be Collected PRN (07/08/17 09:40) Group B Strep: Negative MDM Medical Record Reviewed: Yes Plan Patient is 22 yo F at 37/6 wks gestation presenting in active labor IUP at 37/6 -admit for labor -continue to monitor VS -Category 1 tracing Scripts No Active Prescriptions or Reported Meds Bonita Curiel MD, R1 July 08, 2017 09:55
[2017-07-08] MEDS ORDERED: SODIUM CHLOR 0.9% 1000 ML INJ 1,000 ML IV PRN (10:00)
[2017-07-08] MEDS ORDERED: ONDANSETRON HCL 4 MG/2 ML VIAL ONE (10:00)
[2017-07-08 10:11] LABS: AUTOMATED NEUTROPHIL # 18.3 TH/MM3 (1.8-7.7); BASOPHIL # 0.2 TH/MM3 (0-0.2); BASOPHIL % 0.9 % (0.0-2.0); EOSINOPHIL # 0.1 TH/MM3 (0-0.4); EOSINOPHIL % 0.3 % (0.0-4.0); HEMATOCRIT 34.1 % (35.0-46.0); HEMOGLOBIN 11.6 GM/DL (11.6-15.3); LYMPH % 11.1 % (9.0-44.0); LYMPHOCYTE # 2.5 TH/MM3 (1.0-4.8); MEAN CELL VOLUME 87.5 FL (80.0-100.0); MEAN CORPUSCULAR HEMOGLOBIN 29.7 PG (27.0-34.0); MEAN CORPUSCULAR HGB CONC 33.9 % (32.0-36.0); MEAN PLATELET VOLUME 8.9 FL (7.0-11.0); MONO % 5.6 % (0.0-8.0); MONOCYTE # 1.2 TH/MM3 (0-0.9); NEUT % 82.1 % (16.0-70.0); PLATELET COUNT 396 TH/MM3 (150-450); RED CELL DISTRIBUTION WIDTH 13.7 % (11.6-17.2); WHITE BLOOD COUNT 22.2 TH/MM3 (4.0-11.0)
[2017-07-08] MEDS ORDERED: fentaNYL 2MCG-BUPIV 0.125% INJ 100 ML ONE (10:22)
[2017-07-08] MEDS ORDERED: LIDOCAINE 1%/EPINEPHrine 1:200,000 PF SOLN 30 ML VIAL ONE (10:23)
--- NOTE | 2017-07-08 10:25 | PD.LABORPN ---
Subjective Subjective Patient lying in bed. Feeling contractions and pressure. Discussed with patient AROM, patient expressed understanding and agreed to plan. Objective Objective Pelvic Exam: Cervix: midposition Dilatation: 8 Effacement: 100% Station: -1 Presentation: vertex Membranes: ruptured Uterine Contractions: q2-3 minutes FHT's: Category: II Baseline: 140s Reactive: +accels Variability: moderate Decels: variable decels noted Weeks Gestation: 37 Assessment/Plan Assessment and Plan 22 year old at 37/6 weeks gestation in active labor. 1. IUP - Category II tracing, patient with multiple variable decelerations however with moderate variability - Contractions q2-3 minutes on tocometer - Cervix: 8/100/-1 - GBS negative per EMR in [place] - Continue expectant management dw Kendell Burns MD R2 July 08, 2017 10:25
--- NOTE | 2017-07-08 10:30 | HHI.HP ---
History & Physical H&P HPI HPI Chief Complaint contractions Date Seen: July 08, 2017 Time Seen: 09:43 Travel History International Travel<30 Days: No Contact w/Intl Traveler<30Days: No History of Present Illness HPI Patient is a 22-year-old at 37/6 weeks gestation presents due to contraction occurring less than 2 minutes apart. Patient denies any loss of fluid, vaginal bleeding. Endorses movement about 10 movements in the past 2 hours. Weeks Gestation: 37 Para: 1 : 5 Miscarriage: 3 History (Limited) History Past Medical History Narrative Medical Hypothyroid Obstetric History Obstetric History Denies any complication with this current 1 no complications 3 miscarriages Past Surgical History Narrative Surgical Knee surgery Family History Family History: Negative Social History Alcohol Use: No Tobacco Use: Yes (Half a pack a day) Substance Abuse: No Allergies-Medications Allergies-Medications (Allergen,Severity, Reaction): Coded Allergies: acetaminophen (Verified Allergy, Intermediate, HIVES, 02/22/17) PT DENIES oxycodone (Verified Allergy, Intermediate, HIVES, 02/22/17) diphenhydramine (Verified Adverse Reaction, Intermediate, HYPERACTIVITY, 02/22/17) Home Meds No Active Prescriptions or Reported Meds ROS Review of Systems Except as stated in HPI: all other systems reviewed are Neg Physical Exam Physical Exam Narrative GENERAL: Well-nourished, well-developed patient. SKIN: Warm and dry. HEAD: Normocephalic and atraumatic. EYES: No scleral icterus. No injection or drainage. ENT: No nasal drainage noted. Mucous membranes pink. Airway patent. NECK: Supple, trachea midline. No JVD. CARDIOVASCULAR: Regular rate and rhythm without murmurs, gallops, or rubs. RESPIRATORY: Breath sounds equal bilaterally. No accessory muscle use. BREASTS: Bilateral exam showed no masses , no retractions, no nipple discharge. ABDOMEN/GI: Abdomen soft, non-tender, bowel sounds present, no rebound, no guarding Gravid to 37/6 weeks size GENITOURINARY: External Genitalia: intact and normal in appearance Cervix; mid position Dilatation: 4 Effacement: 100 Station: -1 Presentation: vertex Membranes: intact Uterine Contractions: every min FHT's: Category: 1 Baseline: 160 Reactive: yes Variability: moderate Decels: none EXTREMITIES: No cyanosis or edema. BACK: Nontender without obvious deformity. No CVA tenderness. NEUROLOGICAL: Awake and alert. Motor and sensory grossly within normal limits. Five out of 5 muscle strength in all muscle groups. Normal speech. Data Data Data Vital Signs Reviewed: Yes Orders Orders Ob (2e) Additional Admit Info (07/08/17 09:20) Admit To Inpatient (07/08/17 ) Code Status (07/08/17 09:40) Vital Signs (Adult) .Per protocol (07/08/17 09:40) Heart (07/08/17 09:40) Amnioinfusion (07/08/17 09:40) Urinary Catheter Management .ONCE (07/08/17 09:40) Diet Liquid (07/08/17 Breakfast) Lactated Ringer's 1000 Ml Inj (Lr 1000 M (07/08/17 09:40) Lactated Ringer's 1000 Ml Inj (Lr 1000 M (07/08/17 09:40) Sodium Chlorid 0.9% 500 Ml Inj (Ns 500 M (07/08/17 09:45) Sodium Chlor 0.9% 1000 Ml Inj (Ns 1000 M (07/08/17 10:00) Lidocaine 1% Inj (50 Ml) (Xylocaine 1% I (07/08/17 09:45) Citric Acid-Sodium Citrate Liq (Bicitra (07/08/17 09:45) Fentanyl Inj (Fentanyl Inj) (07/08/17 09:45) Fentanyl Inj (Fentanyl Inj) (07/08/17 09:45) Complete Blood Count With Diff (07/08/17 09:40) Hold Clot (07/08/17 09:40) Abo/Rh Blood Type (07/08/17 09:40) Urinalysis - C+S If Indicated (07/08/17 09:40) Ob/Psych Drug Screen, Urine (07/08/17 09:40) Resp Oxygen Non Rebreathe Mask (07/08/17 ) ^ Epidural / Intrathecal Infus (07/08/17 09:40) Oxytocin 30 Units-500ml Premix (Pitocin (07/08/17 09:45) Lidocaine 1% Inj (50 Ml) (Xylocaine 1% I (07/08/17 09:45) Light Mineral Oil (Muri-Lube Oil) (07/08/17 09:45) Inpatient Certification (07/08/17 ) Specimen To Be Collected PRN (07/08/17 09:40) Group B Strep: Negative MDM MDM Medical Record Reviewed: Yes Plan Patient is 22 yo F at 37/6 wks gestation presenting in active labor IUP at 37/6 -admit for labor -continue to monitor VS -Category 1 tracing Scripts No Active Prescriptions or Reported Meds Bonita Curiel MD, R1 July 08, 2017 10:29
--- NOTE | 2017-07-08 12:09 | PD.OB.DELI ---
Weeks gestation: 37 Pt started active labor?: Yes Medical induction of labor?: No Artificial rupture of membrane: Yes Anesthesia: Epidural Episiotomy: None Vaginal Delivery: Normal Presentation: Occiput anterior Nuchal Cord: x1 Delayed cord clamping (45 sec): Yes : Male Delivery date: July 08, 2017 Delivery time: 11:57 One Minute : 9 Five Minute : 9 Weight: 2700g Placenta: Spontaneous delivery Laceration: No lacerations Estimated blood loss: 100cc Bonita Curiel MD, R1 July 08, 2017 12:09
[2017-07-08] MEDS ORDERED: ALUMINUM/MAGNESIUM/SIMETH 30 ML CUP PO PRN (12:15)
[2017-07-08] MEDS ORDERED: ACETAMINOPHEN 325 MG TAB PO PRN (12:15)
[2017-07-08] MEDS ORDERED: ZOLPIDEM TARTRATE 5 MG TAB PO PRN (12:15)
[2017-07-08] MEDS ORDERED: BENZOCAINE 20% TOPICAL SPRAY 60 ML CAN TOPICAL PRN (12:15)
[2017-07-08] MEDS ORDERED: SODIUM CHLORIDE 0.9% FLUSH 10 ML FLUSH IV FLUSH SCH (12:15)
[2017-07-08] MEDS ORDERED: ONDANSETRON ODT 4 MG TAB PO PRN (12:15)
[2017-07-08] MEDS ORDERED: SODIUM CHLORIDE 0.9% FLUSH 10 ML FLUSH IV FLUSH PRN (12:15)
[2017-07-08] MEDS ORDERED: WITCH HAZEL 50%/GLYCERIN 12.5% 40 PAD JAR TOPICAL PRN (12:15)
[2017-07-08] MEDS ORDERED: OXYTOCIN 30 UNITS-500ML PREMIX 500 ML IV SCH (12:15)
[2017-07-08] MEDS ORDERED: oxyCODONE/ACETAMINOPHEN 5 MG/325 MG TAB PO PRN (12:15)
[2017-07-08] MEDS ORDERED: DOCUSATE SODIUM 50 MG/SENNA 8.6 MG TAB PO PRN (12:15)
[2017-07-08 12:40] LABS: AMORPHOUS SEDIMENT, URINE FEW; BACTERIA, URINE OCC /hpf; BILIRUBIN, URINE NEG (NEG); BLOOD, URINE NEG (NEG); GLUCOSE,URINE NEG (NEG); KETONE, URINE 10 mg/dL (NEG); MUCUS URINE FEW /lpf (OCC); NITRITE,URINE NEG (NEG); SQUAMOUS EPITHELIAL CELL URINE <1 /hpf (0-5); URINE COLOR YELLOW (YELLW/STRAW); URINE LEUKOCYTE ESTERASE SMALL (NEG)
[2017-07-08] MEDS: IBUPROFEN 800 MG TAB PO PRN (14:51)
[2017-07-08] MEDS ORDERED: KETOROLAC TROMETHAMINE 60 MG/2 ML (IM) VIAL IM PRN (15:15)
[2017-07-08] MEDS ORDERED: MEASLES, MUMPS, RUBELLA VACCINE 0.5 ML VIAL SQ ONE (16:00)
[2017-07-08] MEDS ORDERED: DIPHTH/TETANUS/ACEL PERTUSSIS (BOOSTER) 0.5 ML VIAL/PFS IM ONE (16:00)
[2017-07-08] MEDS: ACETAMINOPHEN 325 MG TAB PO PRN (21:49)
[2017-07-08] MEDS: FAMOTIDINE 20 MG TAB PO SCH (22:03)
[2017-07-09] MEDS: ACETAMINOPHEN 325 MG TAB PO PRN (04:10)
[2017-07-09] MEDS: IBUPROFEN 800 MG TAB PO PRN (04:11)
[2017-07-09 07:42] VITALS: BP 105/59; PULSE 60; RESP 18; TEMP 97.9; O2SAT 99
[2017-07-09] MEDS ORDERED: IBUP1TAB7 PO (08:23)
[2017-07-09] MEDS ORDERED: PERI PO (08:23)
--- NOTE | 2017-07-09 08:33 | HHI.OB ---
Subjective Post Day: 1 Remarks Patient seen and examined this morning. Patient reports she is doing well overall. She does not have any specific concerns or complaints. Decreased lochia. Ambulating without difficulty. Tolerating diet. Breast and formula feeding her . States her pain is now better controlled. She denies any fevers or chills, chest pain, dyspnea, cough. Objective Vitals/I&O Vital Signs Date Time Temp Pulse Resp B/P (MAP) Pulse Ox O2 Delivery O2 Flow Rate FiO2 07/09/17 07:42 97.9 60 18 105/59 (74) 99 07/08/17 19:59 98.2 79 18 103/62 (76) 07/08/17 13:54 69 07/08/17 13:53 98.4 69 20 115/69 (84) 98 07/08/17 13:30 16 07/08/17 13:30 69 110/64 (79) 07/08/17 13:15 16 07/08/17 13:15 72 114/67 (83) 07/08/17 13:00 74 113/59 (77) 07/08/17 12:45 18 07/08/17 12:45 95 105/58 (74) 07/08/17 12:30 20 07/08/17 12:15 86 107/63 (78) 07/08/17 12:15 98.0 07/08/17 12:10 18 07/08/17 12:09 84 104/55 (71) 07/08/17 10:42 91 117/63 (81) Objective Remarks GENERAL: Well-nourished, well-developed patient. CARDIOVASCULAR: Regular rate and rhythm without murmurs, gallops, or rubs. RESPIRATORY: Breath sounds equal bilaterally. No accessory muscle use. ABDOMEN/GI: Abdomen soft, non-tender. Fundus: Firm, non-tender at umbilicus. GENITOURINARY: Light to moderate bleeding. EXTREMITIES: No cyanosis or edema, non-tender, without signs of DVT. Medications and IVs Current Medications Medications (Trade) Dose Ordered Sig/Mine Route Start Time Stop Time Status Last Admin (NS Flush) 2 ml BID IV FLUSH 07/08/17 12:15 (NS Flush) 2 ml UNSCH PRN IV FLUSH 07/08/17 12:15 (Motrin) 800 mg Q8H PRN PO 07/08/17 12:15 07/09/17 04:11 (Americaine 20% Top Spr) 1 spray Q4H PRN TOPICAL 07/08/17 12:15 (Tucks Pads) 1 applic QID PRN TOPICAL 07/08/17 12:15 (Kavita-Colace) 2 tab Q12H PRN PO 07/08/17 12:15 (Ambien) 5 mg HS PRN PO 07/08/17 12:15 (Mag-Al Plus Susp Liq) 15 ml Q8H PRN PO 07/08/17 12:15 07/08/17 13:14 (Zofran Odt) 4 mg Q6H PRN PO 07/08/17 12:15 (Toradol Inj) 30 mg Q6H PRN IM 07/08/17 15:15 07/13/17 15:14 (Tylenol) 650 mg Q4H PRN PO 07/08/17 21:00 07/09/17 04:10 (Pepcid) 20 mg Q12HR PO 07/08/17 21:45 07/08/17 22:03 Assessment/Plan Assessment and Plan 22 year old now PPD #1 s/p . 1. care - AFVSS - Continue motrin prn pain - Ambulate OOB, as tolerated - Advised pelvic rest x 6 weeks - Contraception: discussed with patient this AM, patient stated she is following up with her OB provider as an outpatient - Instructed follow up within 6 weeks after hospital discharge ledy Cunningham Discharge Planning Stable for discharge home today Kendell Mahan MD R2 July 09, 2017 08:33
[2017-07-09] MEDS ORDERED: FAMOTIDINE 20 MG TAB PO SCH (09:00)
[2017-07-09] MEDS: FAMOTIDINE 20 MG TAB PO SCH (09:00)
--- NOTE | 2017-07-09 10:13 | HHI.DCPOC ---
Discharge Care Plan Diagnosis: (1) care following vaginal delivery Report Symptoms to Your Doctor -Temperature above 100.5 degrees -Redness, of incision or excessive or foul smelling drainage -Unusual pain or calf pain -Increased vaginal bleeding -Painful or difficulty urinating -Feelings of extreme sadness or anxiety after 2 weeks Goals to Promote Your Health * To maintain your health at the optimal level, follow up with your OB provider within 6 weeks after hospital discharge. Directions to Meet Your Goals Take your medications as prescribed Follow your dietary instruction Follow activity as directed Ensure plenty of rest for recovery Drink fluids for hydration Keep your appointments as scheduled Take your immunizations and boosters as scheduled If your symptoms worsen call your PCP, if no PCP go to Urgent Care Center or Emergency Room Smoking is Dangerous to Your Health. Avoid second hand smoke Call the 24-hour crisis hotline for domestic abuse at Kendell Mahan MD R2 July 09, 2017 10:13
== END 2017-07-09 15:27 | disposition home or self-care (01) | DRG 775 ==
LOC: HOBED 09:15 → H2EB 09:22 → H1EA 13:44
PROVIDERS: ADMIT Obstetrics & Gynecology; ATTEND Obstetrics & Gynecology
PROC: 10E0XZZ Delivery of Products of Conception, External Approach (ICD-10-PCS; principal; 2017-07-08)
PROC: 00HU33Z Insertion of Infusion Device into Spinal Canal, Percutaneous Approach (ICD-10-PCS; 2017-07-08)
PROC: 3E0R3BZ Introduction of Anesthetic Agent into Spinal Canal, Percutaneous Approach (ICD-10-PCS; 2017-07-08)
DX: O99.284 Endocrine, nutritional and metabolic diseases complicating childbirth (principal); E03.9 Hypothyroidism, unspecified; Z37.0 Single live birth; O99.334 Smoking (tobacco) complicating childbirth; F17.210 Nicotine dependence, cigarettes, uncomplicated; Z3A.37 37 weeks gestation of pregnancy; O76 Abnormality in fetal heart rate and rhythm complicating labor and delivery; O69.81X0 Labor and delivery complicated by cord around neck, without compression, not applicable or unspecified
CPT/HCPCS: 80307; 81001; 85025; 86403; 87077; 87086; 87186; 90715; G0481; J2405; J7120